=== PATIENT | male | born 1950 | race Two or more races ===

== ENCOUNTER 2018-07-27 09:51 | Inpatient (IN) | payer MEDICAID ==
[~2018-07-27] VITALS: Ht 167.6 cm; Wt 79.8 kg
[2018-07-27] MEDS ORDERED: LISINOPRIL20 MG ORAL (09:54)
[2018-07-27] MEDS ORDERED: FUROSEMIDE40 MG ORAL (09:54)
[2018-07-27] MEDS ORDERED: SPIRONOLACTONE25 MG ORAL (09:54)
[2018-07-27 10:00] VITALS: BP 126/72
[2018-07-27] MEDS ORDERED: Sodium Chloride 500ML 500 ML IV ONE (10:08)
[2018-07-27 10:28] LABS: BASOPHILS % (AUTO) 1.1 % (0.0-2.0); EOSINOPHILS % (AUTO) 0.8 % (0.0-3.0); HEMATOCRIT 52.6 % (42.0-52.0); HEMOGLOBIN 17.8 G/DL (14.2-18.0); LYMPHOCYTES % (AUTO) 17.9 % (20.0-45.0); MEAN CORPUSCULAR VOLUME 94 FL (80-99); MONOCYTES % (AUTO) 7.6 % (1.0-10.0); NEUTROPHILS % (AUTO) 72.5 % (45.0-75.0); PLATELET COUNT 223 K/UL (150-450); RED BLOOD COUNT 5.62 M/UL (4.70-6.10); RED CELL DISTRIBUTION WIDTH 12.1 % (11.6-14.8); WHITE BLOOD COUNT 10.5 K/UL (4.8-10.8)
[2018-07-27 10:36] LABS: ANION GAP 12 mmol/L (5-15); BLOOD UREA NITROGEN 68 mg/dL (7-18); CALCIUM 9.2 MG/DL (8.5-10.1); CARBON DIOXIDE 23 MMOL/L (21-32); CHLORIDE 99 MMOL/L (98-107); CREATININE 2.1 MG/DL (0.55-1.30); POTASSIUM 4.3 MMOL/L (3.5-5.1); SODIUM 134 MMOL/L (136-145)
[2018-07-27 10:50] LABS: ALANINE AMINOTRANSFERASE 29 U/L (12-78); ALBUMIN 3.4 G/DL (3.4-5.0); ALBUMIN/GLOBULIN RATIO 0.7 (1.0-2.7); ALKALINE PHOSPHATASE 124 U/L (46-116); ASPARTATE AMINO TRANSFERASE 26 U/L (15-37); BILIRUBIN,TOTAL 0.6 MG/DL (0.2-1.0); CKMB 3.1 NG/ML (0.0-3.6); CREATINE KINASE 126 U/L (26-308)
[2018-07-27 11:43] VITALS: BP 114/79
--- NOTE | 2018-07-27 11:43 | Emergency Room Report ---
History of Present Illness General Chief Complaint: Nausea Source: Patient, EMS Present Illness HPI 67-year-old male presents ED for evaluation. Brought in by EMS. Called 911 stating he felt nauseous and dizzy 1 day. Per EMS O2 sats low. Started on oxygen. History of CHF. States he is compliant with his medications. Denies chest pain. Denies fevers or chills or cough. No other aggravating relieving factors. Denies any other associated symptoms Allergies: Coded Allergies: No Known Allergies (Unverified , 07/27/18) Patient History Past Medical History: HTN, [place], CAD, asthma Past Surgical History: none Pertinent Family History: none Social History: Denies: smoking, alcohol use, drug use Immunizations: UTD Reviewed Nursing Documentation: PMH: Agreed; PSxH: Agreed Nursing Documentation-PMH Past Medical History: No History, Except For Hx Cardiac Problems: Yes - heart attack 2017, heart surgery Hx Hypertension: Yes Hx Asthma: Yes Review of Systems All Other Systems: negative except mentioned in HPI Physical Exam Vital Signs Date Time Temp Pulse Resp B/P (MAP) Pulse Ox O2 Delivery O2 Flow Rate FiO2 07/27/18 09:46 98.3 91 20 130/69 98 Nasal Cannula 4.0 98.2 Sp02 EP Interpretation: reviewed, normal General Appearance: no apparent distress, alert, GCS 15, non-toxic Head: normocephalic, atraumatic Eyes: bilateral eye normal inspection, bilateral eye PERRL ENT: hearing grossly normal, normal pharynx, no angioedema, normal voice Neck: full range of motion, supple/symm/no masses Respiratory: chest non-tender, lungs clear, normal breath sounds, speaking full sentences Cardiovascular #1: regular rate, rhythm, no edema Cardiovascular #2: 2+ carotid (R), 2+ carotid (L), 2+ radial (R), 2+ radial (L) , 2+ dorsalis pedis (R), 2+ dorsalis pedis (L) Gastrointestinal: normal bowel sounds, non tender, soft, non-distended, no guarding, no rebound Rectal: deferred Genitourinary: normal inspection, no CVA tenderness Musculoskeletal: back normal, gait/station normal, normal range of motion, non- tender Neurologic: alert, oriented x3, responsive, motor strength/tone normal, sensory intact, speech normal Psychiatric: judgement/insight normal, memory normal, mood/affect normal, no suicidal/homicidal ideation Reflexes: 3+ bicep (R), 3+ bicep (L), 3+ tricep (R), 3+ tricep (L), 3+ knee (R) , 3+ knee (L) Skin: normal color, no rash, warm/dry, well hydrated Lymphatic: no adenopathy Medical Decision Making Diagnostic Impression: Primary Impression: CHF exacerbation Qualified Codes: I50.9 - Heart failure, unspecified Additional Impression: Renal insufficiency ER Course Hospital Course 67-year-old male presents ED complaining of shortness of breath, dizziness Differential diagnoses include: AZ/unstable angina, contusion, muscle strain, PTX, rib fracture Clinical course Patient placed on stretcher. on cardiac nurse. After initial history and physical I ordered labs, EKG, chest x-ray, IVFs labs reviewed- no leukocytosis, hemoglobin/hematocrit stable, BUN/Cr elevated, troponins 0.030, BNP greater than 1927 EKG - RBBB, LA deviation, no acute ishemic changes interpreted by me Chest x-ray- pulmonary congestion, sternotomy wires Lasix given. Case discussed with Dr. Orosco and he agreed to accept the patient to his service for further care and support I. I feel this is a highly complex case requiring extensive working including EKG/Rhythm strip, Xray/CT/US, Blood/urine lab work, repeat exams while in ED, and administration of strong opiates/narcotics for pain control, admission to hospital or close patient follow up. Diagnosis - CHF exacerbation, renal insufficiency admitted to telemetry in serious condition Labs Test 07/27/18 10:10 White Blood Count 10.5 K/UL (4.8-10.8) Red Blood Count 5.62 M/UL (4.70-6.10) Hemoglobin 17.8 G/DL (14.2-18.0) Hematocrit 52.6 % (42.0-52.0) Mean Corpuscular Volume 94 FL (80-99) Mean Corpuscular Hemoglobin 31.7 PG (27.0-31.0) Mean Corpuscular Hemoglobin Concent 33.9 G/DL (32.0-36.0) Red Cell Distribution Width 12.1 % (11.6-14.8) Platelet Count 223 K/UL (150-450) Mean Platelet Volume 8.4 FL (6.5-10.1) Neutrophils (%) (Auto) 72.5 % (45.0-75.0) Lymphocytes (%) (Auto) 17.9 % (20.0-45.0) Monocytes (%) (Auto) 7.6 % (1.0-10.0) Eosinophils (%) (Auto) 0.8 % (0.0-3.0) Basophils (%) (Auto) 1.1 % (0.0-2.0) Sodium Level 134 MMOL/L (136-145) Potassium Level 4.3 MMOL/L (3.5-5.1) Chloride Level 99 MMOL/L (98-107) Carbon Dioxide Level 23 MMOL/L (21-32) Anion Gap 12 mmol/L (5-15) Blood Urea Nitrogen 68 mg/dL (7-18) Creatinine 2.1 MG/DL (0.55-1.30) Estimat Glomerular Filtration Rate 31.6 mL/min (>60) Glucose Level 128 MG/DL (74-106) Calcium Level 9.2 MG/DL (8.5-10.1) Total Bilirubin 0.6 MG/DL (0.2-1.0) Aspartate Amino Transf (AST/SGOT) 26 U/L (15-37) Alanine Aminotransferase (ALT/SGPT) 29 U/L (12-78) Alkaline Phosphatase 124 U/L (46-116) Total Creatine Kinase 126 U/L (26-308) Creatine Kinase MB 3.1 NG/ML (0.0-3.6) Creatine Kinase MB Relative Index 2.4 Troponin I 0.030 ng/mL (0.000-0.056) Pro-B-Type Natriuretic Peptide 1927 pg/mL (0-125) Total Protein 8.1 G/DL (6.4-8.2) Albumin 3.4 G/DL (3.4-5.0) Globulin 4.7 g/dL Albumin/Globulin Ratio 0.7 (1.0-2.7) EKG Diagnostic Results Rate: normal Rhythm: NSR ST Segments: other - RBBB ASA given to the pt in ED: No Rhythm Strip Diag. Results EP Interpretation: yes Rhythm: NSR, no PVC's, no ectopy Chest X-Ray Diagnostic Results Chest X-Ray Diagnostic Results : Chest X-Ray Ordered: Yes # of Views/Limited/Complete: 1 View Indication: Shortness of Breath EP Interpretation: Yes Interpretation: no consolidation, no pneumothorax, other - cardiomegaly. sternotomy wires Impression: Other - cardiomegaly Electronically Signed by: Electronically signed by Kota Mitchell MD Last Vital Signs Date Time Temp Pulse Resp B/P (MAP) Pulse Ox O2 Delivery O2 Flow Rate FiO2 07/27/18 10:00 98.2 88 20 126/72 96 Nasal Cannula 2.0 98.2 Status: improved Disposition: ADMITTED INPATIENT Condition: Serious Referrals: NOT CHOSEN IPA/,REFERRING (PCP) Kota Mitchell MD Jul 27, 2018 11:43
--- NOTE | 2018-07-27 11:49 | Diagnostic Imaging Report ---
Indications: Altered mental status, dizziness, nausea Technique: Spiral acquisitions obtained through the brain. Angled axial and coronal 5 x 5 mm slices were reconstructed. Total dose length product 1407.76 mGycm. CTDI vol(s) 70.38 mGy. Dose reduction achieved using automated exposure control Comparison: None. Findings: There is moderate enlargement of the ventricles and marked enlargement of the extra axial CSF spaces multiple parenchymal calcifications are noted in the bilateral hemispheres. No acute intracranial hemorrhage or edema, mass effect, nor midline shift. Normal elizabeth-white differentiation. Visualized orbits and sinuses are unremarkable. The mastoids are clear. The calvarium is intact. Impression: Age-related volume loss Negative for acute intracranial bleed or mass effect The CT scanner at [facility] is accredited by the [employer] and the scans are performed using protocols designed to limit radiation exposure to as low as reasonably achievable to attain images of sufficient resolution adequate for diagnostic evaluation.
[2018-07-27 11:51] LABS: APPEARANCE,URINE CLEAR; BILIRUBIN, URINE NEGATIVE (NEGATIVE); COLOR,URINE PALE YELLOW; GLUCOSE, URINE (UA) NEGATIVE (NEGATIVE); KETONES,URINE NEGATIVE (NEGATIVE); LEUKOCYTE ESTERASE ,URINE NEGATIVE (NEGATIVE); NITRITE,URINE NEGATIVE (NEGATIVE); PH,URINE 6 (4.5-8.0); PROTEIN,URINE NEGATIVE (NEGATIVE); UROBILINOGEN,URINE NORMAL MG/DL (0.0-1.0)
--- NOTE | 2018-07-27 14:32 | History and Physical ---
History of Present Illness General Date patient seen: Jul 27, 2018 Time patient seen: 14:26 Reason for Hospitalization: Nausea Present Illness HPI Pt is a 67 yo male w/ a PMH of Coronary artery disease, CABG 2009, recent pci at [facility], CHF w/ systolic failure of 10%. He presents for shortness of breath and worsening nausea. He states symptoms started yesterday so he decided to come to the ER. Of note, he used to have a pacemaker/defib device years ago but it was removed due to infection. He apparently was told to have it replaced but he refused. He currently seems acceptable to the idea of having it replaced. Allergies: Coded Allergies: No Known Allergies (Unverified , 07/27/18) Medication History Scheduled Furosemide* (Lasix*), 40 MG ORAL DAILY, (Reported) Lisinopril (Lisinopril*), 10 MG ORAL DAILY, (Reported) Spironolactone* (Aldactone*), 25 MG ORAL DAILY, (Reported) Patient History Healthcare decision maker Resuscitation status Advanced Directive on File Past Medical/Surgical History Past Medical/Surgical History: (1) Hx of CABG (2) Renal insufficiency (3) CHF exacerbation Review of Systems Constitutional: Reports: malaise, weakness; Denies: fever Respiratory: Reports: shortness of breath, [place]; Denies: wheezing, sputum Cardiovascular: Reports: edema; Denies: chest pain, palpitations, syncope Gastrointestinal: Reports: abdominal pain, nausea; Denies: constipation, diarrhea Musculoskeletal: Denies: back pain, gout, joint swelling, muscle pain Skin: Denies: rash, change in color Psychiatric: Denies: depressed feelings, SI Neurological: Denies: numbness, paresthesia, seizure Hematologic/Lymphatic: Denies: anemia, blood clots, easy bleeding Physical Exam General Appearance: no apparent distress, alert, obese Lines, tubes and drains: peripheral HEENT: normocephalic, atraumatic, anicteric, mucous membranes moist Neck: non-tender, normal alignment, supple, normal inspection Respiratory/Chest: chest wall non-tender, lungs clear, normal breath sounds, no respiratory distress Cardiovascular/Chest: normal peripheral pulses, normal rate, regular rhythm Abdomen: normal bowel sounds, non tender, soft, no organomegaly Extremities: normal range of motion, non-tender, normal inspection Skin Exam: normal pigmentation, warm/dry Neurologic: no motor/sensory deficits, alert, oriented x 3, responsive Last 24 Hour Vital Signs Date Time Temp Pulse Resp B/P (MAP) Pulse Ox O2 Delivery O2 Flow Rate FiO2 07/27/18 11:59 98.2 81 19 114/79 96 Nasal Cannula 2.0 98.2 07/27/18 11:43 98.2 81 19 114/79 96 Nasal Cannula 2.0 98.2 07/27/18 10:00 98.2 88 20 126/72 96 Nasal Cannula 2.0 98.2 07/27/18 09:46 98.3 91 20 130/69 98 Nasal Cannula 4.0 98.2 Laboratory Tests Test 07/27/18 10:10 07/27/18 11:40 White Blood Count 10.5 K/UL (4.8-10.8) Red Blood Count 5.62 M/UL (4.70-6.10) Hemoglobin 17.8 G/DL (14.2-18.0) Hematocrit 52.6 % (42.0-52.0) H Mean Corpuscular Volume 94 FL (80-99) Mean Corpuscular Hemoglobin 31.7 PG (27.0-31.0) H Mean Corpuscular Hemoglobin Concent 33.9 G/DL (32.0-36.0) Red Cell Distribution Width 12.1 % (11.6-14.8) Platelet Count 223 K/UL (150-450) Mean Platelet Volume 8.4 FL (6.5-10.1) Neutrophils (%) (Auto) 72.5 % (45.0-75.0) Lymphocytes (%) (Auto) 17.9 % (20.0-45.0) L Monocytes (%) (Auto) 7.6 % (1.0-10.0) Eosinophils (%) (Auto) 0.8 % (0.0-3.0) Basophils (%) (Auto) 1.1 % (0.0-2.0) Sodium Level 134 MMOL/L (136-145) L Potassium Level 4.3 MMOL/L (3.5-5.1) Chloride Level 99 MMOL/L (98-107) Carbon Dioxide Level 23 MMOL/L (21-32) Anion Gap 12 mmol/L (5-15) Blood Urea Nitrogen 68 mg/dL (7-18) H Creatinine 2.1 MG/DL (0.55-1.30) H Estimat Glomerular Filtration Rate 31.6 mL/min (>60) Glucose Level 128 MG/DL (74-106) H Calcium Level 9.2 MG/DL (8.5-10.1) Total Bilirubin 0.6 MG/DL (0.2-1.0) Aspartate Amino Transf (AST/SGOT) 26 U/L (15-37) Alanine Aminotransferase (ALT/SGPT) 29 U/L (12-78) Alkaline Phosphatase 124 U/L (46-116) H Total Creatine Kinase 126 U/L (26-308) Creatine Kinase MB 3.1 NG/ML (0.0-3.6) Creatine Kinase MB Relative Index 2.4 Troponin I 0.030 ng/mL (0.000-0.056) Pro-B-Type Natriuretic Peptide 1927 pg/mL (0-125) H Total Protein 8.1 G/DL (6.4-8.2) Albumin 3.4 G/DL (3.4-5.0) Globulin 4.7 g/dL Albumin/Globulin Ratio 0.7 (1.0-2.7) L Urine Color Pale yellow Urine Appearance Clear Urine pH 6 (4.5-8.0) Urine Specific Dorena 1.015 (1.005-1.035) Urine Protein Negative (NEGATIVE) Urine Glucose (UA) Negative (NEGATIVE) Urine Ketones Negative (NEGATIVE) Urine Blood Negative (NEGATIVE) Urine Nitrite Negative (NEGATIVE) Urine Bilirubin Negative (NEGATIVE) Urine Urobilinogen Normal MG/DL (0.0-1.0) Urine Leukocyte Esterase Negative (NEGATIVE) Height (Feet): 5 Height (Inches): 5.00 Weight (Pounds): 180 Assessment/Plan Problem List: (1) Nausea ICD Codes: R11.0 - Nausea SNOMED: 511850000 (2) CHF exacerbation ICD Codes: I50.9 - Heart failure, unspecified SNOMED: 83990548, 700809255 Qualifiers: Qualified Codes: I50.9 - Heart failure, unspecified (3) Hx of CABG ICD Codes: Z95.1 - Presence of aortocoronary bypass graft SNOMED: 155891056, 968877593 (4) Renal insufficiency ICD Codes: N28.9 - Disorder of kidney and ureter, unspecified SNOMED: 002720690, 320163084 Assessment/Plan 1. CHF exacerbation pt has elevated BNP, per records search he apparently had an EF of 10% pt given lasix currently comfortable, will continue ensure to optimize medical management recommend ICD placement 2. Nausea unclear cause, could be related to cardiac disease will c/w Zofran 3. Acute renal insufficiency, possible w/ superimposed CKD at baseline pt given lasix, will monitor renal function closely 4. Hx of CABG, recent PCI [facility] will c/w medical management recommend ICD Brennen Fallon D.O. Jul 27, 2018 14:31
[2018-07-27] MEDS ORDERED: Heparin 5000 units/ml inj IV ONE (14:45)
[2018-07-27] MEDS ORDERED: Heparin 25,000u/D5W 500ml 500 ML IV SCH (14:45)
--- NOTE | 2018-07-27 15:38 | Cardiac Electrophysiology PN ---
Subjective Subjective [id number] Objective Last 24 Hour Vital Signs Date Time Temp Pulse Resp B/P (MAP) Pulse Ox O2 Delivery O2 Flow Rate FiO2 07/27/18 14:54 Nasal Cannula 2.0 07/27/18 11:59 98.2 81 19 114/79 96 Nasal Cannula 2.0 98.2 07/27/18 11:43 98.2 81 19 114/79 96 Nasal Cannula 2.0 98.2 07/27/18 10:00 98.2 88 20 126/72 96 Nasal Cannula 2.0 98.2 07/27/18 09:46 98.3 91 20 130/69 98 Nasal Cannula 4.0 98.2 Laboratory Tests Test 07/27/18 10:10 07/27/18 11:40 White Blood Count 10.5 K/UL (4.8-10.8) Red Blood Count 5.62 M/UL (4.70-6.10) Hemoglobin 17.8 G/DL (14.2-18.0) Hematocrit 52.6 % (42.0-52.0) H Mean Corpuscular Volume 94 FL (80-99) Mean Corpuscular Hemoglobin 31.7 PG (27.0-31.0) H Mean Corpuscular Hemoglobin Concent 33.9 G/DL (32.0-36.0) Red Cell Distribution Width 12.1 % (11.6-14.8) Platelet Count 223 K/UL (150-450) Mean Platelet Volume 8.4 FL (6.5-10.1) Neutrophils (%) (Auto) 72.5 % (45.0-75.0) Lymphocytes (%) (Auto) 17.9 % (20.0-45.0) L Monocytes (%) (Auto) 7.6 % (1.0-10.0) Eosinophils (%) (Auto) 0.8 % (0.0-3.0) Basophils (%) (Auto) 1.1 % (0.0-2.0) Sodium Level 134 MMOL/L (136-145) L Potassium Level 4.3 MMOL/L (3.5-5.1) Chloride Level 99 MMOL/L (98-107) Carbon Dioxide Level 23 MMOL/L (21-32) Anion Gap 12 mmol/L (5-15) Blood Urea Nitrogen 68 mg/dL (7-18) H Creatinine 2.1 MG/DL (0.55-1.30) H Estimat Glomerular Filtration Rate 31.6 mL/min (>60) Glucose Level 128 MG/DL (74-106) H Calcium Level 9.2 MG/DL (8.5-10.1) Total Bilirubin 0.6 MG/DL (0.2-1.0) Aspartate Amino Transf (AST/SGOT) 26 U/L (15-37) Alanine Aminotransferase (ALT/SGPT) 29 U/L (12-78) Alkaline Phosphatase 124 U/L (46-116) H Total Creatine Kinase 126 U/L (26-308) Creatine Kinase MB 3.1 NG/ML (0.0-3.6) Creatine Kinase MB Relative Index 2.4 Troponin I 0.030 ng/mL (0.000-0.056) Pro-B-Type Natriuretic Peptide 1927 pg/mL (0-125) H Total Protein 8.1 G/DL (6.4-8.2) Albumin 3.4 G/DL (3.4-5.0) Globulin 4.7 g/dL Albumin/Globulin Ratio 0.7 (1.0-2.7) L Urine Color Pale yellow Urine Appearance Clear Urine pH 6 (4.5-8.0) Urine Specific Seth 1.015 (1.005-1.035) Urine Protein Negative (NEGATIVE) Urine Glucose (UA) Negative (NEGATIVE) Urine Ketones Negative (NEGATIVE) Urine Blood Negative (NEGATIVE) Urine Nitrite Negative (NEGATIVE) Urine Bilirubin Negative (NEGATIVE) Urine Urobilinogen Normal MG/DL (0.0-1.0) Urine Leukocyte Esterase Negative (NEGATIVE) Kenan Fam MD Jul 27, 2018 15:38
[2018-07-27] MEDS ORDERED: HydrALAZINE 10mg Tab ORAL SCH (18:00)
[2018-07-27 18:21] VITALS: BP 103/64
[2018-07-27 20:00] VITALS: BP 114/78
[2018-07-27] MEDS: Heparin 5000 units/ml inj SUBQ SCH (21:30)
--- NOTE | 2018-07-27 23:30 | Consultation ---
DATE OF CONSULTATION: 07/27/2018 CARDIOLOGY CONSULTATION CONSULTING PHYSICIAN: Kenan Fam M.D. REFERRING PHYSICIAN: Asia Weber M.D. REASON FOR CONSULTATION: Severe cardiomyopathy in a patient, who has also history of defibrillator implantation. HISTORY OF PRESENT ILLNESS: The patient is a 67-year-old gentleman with history of hypertension, coronary artery disease, history of coronary bypass in 2009 as well as history of and seizures. The patient also has history of defibrillator implantation seven years ago, was removed due to infection. The patient was told , but he has refused. At the time of my evaluation, the patient denies any chest pain, but she is agreeable to the defibrillator implantation. REVIEW OF SYSTEMS: Review of systems was negative other than what was mentioned in the history of present illness. PAST MEDICAL HISTORY: As mentioned above. MEDICATIONS: Lisinopril, Aldactone, Lasix. FAMILY HISTORY: Noncontributory. PHYSICAL EXAMINATION: VITAL SIGNS: pressure is 114/79, pulse 81, respirations 19, and she is afebrile. HEAD AND NECK: Shows positive JVD. LUNGS: Coarse rhonchi. CARDIOVASCULAR: Shows regular S1 and S2 with no gallop or murmur. Sternotomy scar is intact. The site of defibrillator explantation on the left side is present. ABDOMEN: Soft. EXTREMITIES: No pitting edema. LABORATORY AND DIAGNOSTIC DATA: EKG shows sinus rhythm with right bundle-branch block and left anterior fascicular block. LABORATORY DATA: White count 10.5, hemoglobin 17.8, hematocrit 52.7, platelet count 223. Sodium 134, potassium 4.3, BUN of 68, creatinine 2.1, and glucose of 128. BNP is 1927. ASSESSMENT AND PLAN: 1. Exacerbation of congestive heart failure. Her echocardiogram showed ejection fraction of around 15% to 20%. Continue current heart failure therapy including Lasix 40 mg IV daily, lisinopril 10 mg daily, and Aldactone 25 mg daily. I will add Coreg to her medical regimen. 2. Status post removal of the defibrillator. The patient presents criteria for ICD implantation, is agreeable, however, patient has restricted medical. We will try to get authorization if possible, otherwise the patient [place] need to have [place] the [place]. 3. Bifascicular block, right bundle-branch block, and left anterior fascicular block. No syncope. 4. Renal failure with creatinine 2.4. Thank you very much for allowing me to participate in the care of this patient. Please do not hesitate to contact me for any questions regarding my evaluation. Kenan Fam M.D. DR: ZE JOB#: [id number] CC:
[2018-07-28] VITALS: BP 112/72
[2018-07-28 04:00] VITALS: BP 115/74
[2018-07-28 07:11] LABS: INR 1.2 (0.9-1.1)
[2018-07-28 07:22] LABS: BASOPHILS % (AUTO) 0.9 % (0.0-2.0); EOSINOPHILS % (AUTO) 1.3 % (0.0-3.0); HEMATOCRIT 53.1 % (42.0-52.0); LYMPHOCYTES % (AUTO) 21.4 % (20.0-45.0); MEAN CORPUSCULAR VOLUME 93 FL (80-99); MONOCYTES % (AUTO) 9.9 % (1.0-10.0); NEUTROPHILS % (AUTO) 66.4 % (45.0-75.0); PLATELET COUNT 221 K/UL (150-450); RED BLOOD COUNT 5.69 M/UL (4.70-6.10); RED CELL DISTRIBUTION WIDTH 11.7 % (11.6-14.8); WHITE BLOOD COUNT 9.1 K/UL (4.8-10.8)
[2018-07-28 07:26] LABS: HEMOGLOBIN 18.6 G/DL (14.2-18.0)
[2018-07-28 07:35] LABS: ANION GAP 13 mmol/L (5-15); BLOOD UREA NITROGEN 57 mg/dL (7-18); CALCIUM 9.3 MG/DL (8.5-10.1); CARBON DIOXIDE 24 MMOL/L (21-32); CHLORIDE 97 MMOL/L (98-107); CREATININE 1.7 MG/DL (0.55-1.30); POTASSIUM 4.1 MMOL/L (3.5-5.1); SODIUM 134 MMOL/L (136-145)
[2018-07-28 08:00] VITALS: BP 101/69
[2018-07-28] MEDS: Heparin 5000 units/ml inj SUBQ SCH ×2 (08:51→20:35)
[2018-07-28] MEDS: Spironolactone 25mg tab ORAL SCH (09:00)
[2018-07-28] MEDS ORDERED: Furosemide 40mg tab ORAL SCH (09:00)
[2018-07-28] MEDS ORDERED: Lisinopril 10mg tab ORAL SCH (09:00)
[2018-07-28] MEDS: HydrALAZINE 10mg Tab ORAL SCH ×2 (09:00→21:00)
--- NOTE | 2018-07-28 09:57 | General Progress Note ---
Assessment/Plan Problem List: (1) Nausea ICD Codes: R11.0 - Nausea SNOMED: 183619972 (2) CHF exacerbation ICD Codes: I50.9 - Heart failure, unspecified SNOMED: 99330837, 131649224 Qualifiers: Qualified Codes: I50.9 - Heart failure, unspecified (3) Hx of CABG ICD Codes: Z95.1 - Presence of aortocoronary bypass graft SNOMED: 157750845, 812379209 (4) Renal insufficiency ICD Codes: N28.9 - Disorder of kidney and ureter, unspecified SNOMED: 891005483, 137575692 Assessment/Plan 1. CHF exacerbation pt has elevated BNP, per records search he apparently had an EF of 10% pt given lasix, somewhat improved ensure to optimize medical management recommend ICD placement 2. Nausea, improving unclear cause, could be related to cardiac disease will c/w Zofran 3. Acute renal insufficiency, possible w/ superimposed CKD at baseline pt given lasix, will monitor renal function closely slightly improved as well 4. Hx of CABG, recent PCI [facility] will c/w medical management recommend ICD Subjective Date patient seen: Jul 28, 2018 Time patient seen: 09:55 Allergies: Coded Allergies: No Known Allergies (Unverified , 07/27/18) Subjective Pt seen and examined. No complaints today, states his nausea is significantly improved. He is feeling okay overall. Other ROS as per HPI Objective Last 24 Hour Vital Signs Date Time Temp Pulse Resp B/P (MAP) Pulse Ox O2 Delivery O2 Flow Rate FiO2 07/28/18 08:00 97.2 87 17 101/69 (80) 96 97.2 07/28/18 08:00 92 07/28/18 04:00 76 07/28/18 04:00 97.0 82 20 115/74 (88) 99 97.0 07/28/18 00:00 97.3 75 20 112/72 (85) 100 97.3 07/28/18 00:00 75 07/27/18 21:00 Nasal Cannula 2.0 07/27/18 20:00 97.3 82 20 114/78 (90) 97 97.3 07/27/18 20:00 82 07/27/18 18:21 103/64 (77) 07/27/18 18:00 103/64 07/27/18 18:00 103/64 10/17/18 16:00 81 07/27/18 14:54 Nasal Cannula 2.0 07/27/18 11:59 98.2 81 19 114/79 96 Nasal Cannula 2.0 98.2 07/27/18 11:43 98.2 81 19 114/79 96 Nasal Cannula 2.0 98.2 07/27/18 10:00 98.2 88 20 126/72 96 Nasal Cannula 2.0 98.2 Intake and Output 07/27/18 07/28/18 19:00 07:00 Intake Total 800 ml 500 ml Output Total 1400 ml 1000 ml Balance -600 ml -500 ml Intake Oral 800 ml 500 ml Output Urine Total 1400 ml 1000 ml # Voids 3 Laboratory Tests 07/27/18 10:10: White Blood Count 10.5, Red Blood Count 5.62, Hemoglobin 17.8, Hematocrit 52.6H , Mean Corpuscular Volume 94, Mean Corpuscular Hemoglobin 31.7H, Mean Corpuscular Hemoglobin Concent 33.9, Red Cell Distribution Width 12.1, Platelet Count 223, Mean Platelet Volume 8.4, Neutrophils (%) (Auto) 72.5, Lymphocytes (% ) (Auto) 17.9L, Monocytes (%) (Auto) 7.6, Eosinophils (%) (Auto) 0.8, Basophils (%) (Auto) 1.1, Sodium Level 134L, Potassium Level 4.3, Chloride Level 99, Carbon Dioxide Level 23, Anion Gap 12, Blood Urea Nitrogen 68H, Creatinine 2.1H , Estimat Glomerular Filtration Rate 31.6, Glucose Level 128H, Calcium Level 9.2 , Total Bilirubin 0.6, Aspartate Amino Transf (AST/SGOT) 26, Alanine Aminotransferase (ALT/SGPT) 29, Alkaline Phosphatase 124H, Total Creatine Kinase 126, Creatine Kinase MB 3.1, Creatine Kinase MB Relative Index 2.4, Troponin I 0.030, Pro-B-Type Natriuretic Peptide 1927H, Total Protein 8.1, Albumin 3.4, Globulin 4.7, Albumin/Globulin Ratio 0.7L 07/27/18 11:40: Urine Color Pale yellow, Urine Appearance Clear, Urine pH 6, Urine Specific Nye 1.015, Urine Protein Negative, Urine Glucose (UA) Negative, Urine Ketones Negative, Urine Blood Negative, Urine Nitrite Negative, Urine Bilirubin Negative, Urine Urobilinogen Normal, Urine Leukocyte Esterase Negative 07/28/18 05:20: White Blood Count 9.1, Red Blood Count 5.69, Hemoglobin 18.6*H, Hematocrit 53.1H , Mean Corpuscular Volume 93, Mean Corpuscular Hemoglobin 32.6H, Mean Corpuscular Hemoglobin Concent 34.9, Red Cell Distribution Width 11.7, Platelet Count 221, Mean Platelet Volume 8.7, Neutrophils (%) (Auto) 66.4, Lymphocytes (% ) (Auto) 21.4, Monocytes (%) (Auto) 9.9, Eosinophils (%) (Auto) 1.3, Basophils ( %) (Auto) 0.9, Sodium Level 134L, Potassium Level 4.1, Chloride Level 97L, Carbon Dioxide Level 24, Anion Gap 13, Blood Urea Nitrogen 57H, Creatinine 1.7H , Estimat Glomerular Filtration Rate 40.3, Glucose Level 102, Calcium Level 9.3 , Pro-B-Type Natriuretic Peptide 1435H, Prothrombin Time 12.5H, Prothromb Time International Ratio 1.2H Height (Feet): 5 Height (Inches): 5.00 Weight (Pounds): 180 General Appearance: no apparent distress, alert EENT: PERRL/EOMI, normal ENT inspection, TMs normal Neck: non-tender, normal alignment, supple Cardiovascular: normal peripheral pulses, normal rate, regular rhythm Respiratory/Chest: chest wall non-tender, lungs clear, normal breath sounds Abdomen: normal bowel sounds, non tender, soft Extremities: normal range of motion, non-tender, normal inspection Skin: normal pigmentation, warm/dry Brennen Fallon D.O. Jul 28, 2018 09:57
--- NOTE | 2018-07-28 10:32 | Cardiac Electrophysiology PN ---
Assessment/Plan Assessment/Plan 1. Exacerbation of congestive heart failure. Her echocardiogram showed ejection fraction of around 15% to 20%. Continue current heart failure therapy including Lasix 40 mg IV daily, lisinopril 10 mg daily, and Aldactone 25 mg daily and Coreg 2. Status post removal of the defibrillator. The patient meets criteria for ICD implantation and is agreeable, however, patient has restricted medical. We will try to get authorization if possible, otherwise the patient may need to have it done in the [facility] facility. 3. Bifascicular block, right bundle-branch block, and left anterior fascicular block. No syncope. 4. Renal failure with creatinine 2.4. Subjective Subjective Comfortable in NAD. Occasional PVCs. Objective Last 24 Hour Vital Signs Date Time Temp Pulse Resp B/P (MAP) Pulse Ox O2 Delivery O2 Flow Rate FiO2 07/28/18 09:00 Nasal Cannula 2.0 07/28/18 08:00 97.2 87 17 101/69 (80) 96 97.2 07/28/18 08:00 92 07/28/18 04:00 76 07/28/18 04:00 97.0 82 20 115/74 (88) 99 97.0 07/28/18 00:00 97.3 75 20 112/72 (85) 100 97.3 07/28/18 00:00 75 07/27/18 21:00 Nasal Cannula 2.0 07/27/18 20:00 97.3 82 20 114/78 (90) 97 97.3 07/27/18 20:00 82 07/27/18 18:21 103/64 (77) 07/27/18 18:00 103/64 07/27/18 18:00 103/64 07/27/18 16:00 81 07/27/18 14:54 Nasal Cannula 2.0 07/27/18 11:59 98.2 81 19 114/79 96 Nasal Cannula 2.0 98.2 07/27/18 11:43 98.2 81 19 114/79 96 Nasal Cannula 2.0 98.2 Intake and Output 07/27/18 07/28/18 19:00 07:00 Intake Total 800 ml 500 ml Output Total 1400 ml 1000 ml Balance -600 ml -500 ml Intake Oral 800 ml 500 ml Output Urine Total 1400 ml 1000 ml # Voids 3 Laboratory Tests Test 07/27/18 11:40 07/28/18 05:20 Urine Color Pale yellow Urine Appearance Clear Urine pH 6 (4.5-8.0) Urine Specific Circle 1.015 (1.005-1.035) Urine Protein Negative (NEGATIVE) Urine Glucose (UA) Negative (NEGATIVE) Urine Ketones Negative (NEGATIVE) Urine Blood Negative (NEGATIVE) Urine Nitrite Negative (NEGATIVE) Urine Bilirubin Negative (NEGATIVE) Urine Urobilinogen Normal MG/DL (0.0-1.0) Urine Leukocyte Esterase Negative (NEGATIVE) White Blood Count 9.1 K/UL (4.8-10.8) Red Blood Count 5.69 M/UL (4.70-6.10) Hemoglobin 18.6 G/DL (14.2-18.0) *H Hematocrit 53.1 % (42.0-52.0) H Mean Corpuscular Volume 93 FL (80-99) Mean Corpuscular Hemoglobin 32.6 PG (27.0-31.0) H Mean Corpuscular Hemoglobin Concent 34.9 G/DL (32.0-36.0) Red Cell Distribution Width 11.7 % (11.6-14.8) Platelet Count 221 K/UL (150-450) Mean Platelet Volume 8.7 FL (6.5-10.1) Neutrophils (%) (Auto) 66.4 % (45.0-75.0) Lymphocytes (%) (Auto) 21.4 % (20.0-45.0) Monocytes (%) (Auto) 9.9 % (1.0-10.0) Eosinophils (%) (Auto) 1.3 % (0.0-3.0) Basophils (%) (Auto) 0.9 % (0.0-2.0) Prothrombin Time 12.5 SEC (9.30-11.50) H Prothromb Time International Ratio 1.2 (0.9-1.1) H Sodium Level 134 MMOL/L (136-145) L Potassium Level 4.1 MMOL/L (3.5-5.1) Chloride Level 97 MMOL/L (98-107) L Carbon Dioxide Level 24 MMOL/L (21-32) Anion Gap 13 mmol/L (5-15) Blood Urea Nitrogen 57 mg/dL (7-18) H Creatinine 1.7 MG/DL (0.55-1.30) H Estimat Glomerular Filtration Rate 40.3 mL/min (>60) Glucose Level 102 MG/DL (74-106) Calcium Level 9.3 MG/DL (8.5-10.1) Pro-B-Type Natriuretic Peptide 1435 pg/mL (0-125) H Objective HEAD AND NECK: Shows positive JVD. LUNGS: Coarse rhonchi. CARDIOVASCULAR: Shows regular S1 and S2 with no gallop or murmur. Sternotomy scar is intact. The site of defibrillator explantation on the left side is present. ABDOMEN: Soft. EXTREMITIES: No pitting edema. Kenan Fam MD Jul 28, 2018 10:32
[2018-07-28 12:00] VITALS: BP 106/55
[2018-07-28] MEDS ORDERED: Flu Vaccine (Alfuria) for Pts Less than 65 Years old IM ONE (12:00)
--- NOTE | 2018-07-28 13:10 | Cardiology Report ---
APPROVED REPORT EXAM: Two-dimensional and M-mode echocardiogram with Doppler and color Doppler. INDICATION Congestive Heart Failure M-Mode DIMENSIONS IVSd2.2 (0.7-1.1cm)Left Atrium (MM)3.7 (1.6-4.0cm) LVDd5.5 (3.5-5.6cm)Aortic Root4.3 (2.0-3.7cm) PWd1.5 (0.7-1.1cm)Aortic Cusp Exc.1.8 (1.5-2.0cm) IVSs1.8 cm LVDs5.1 (2.5-4.0cm) PWs2.1 cm Global left ventricular hypokinesis, except septal wall which is dyskinetic. Mild left ventricular enlargement with thinned out anteroseptal wall and presence of sclerotic changes may represent prior myocardial infarction, ischemic cardiomyopathy cannot be excluded. Left ventricular ejection fraction estimated to be 15-20 %. No evidence of left ventricular hypertrophy . Trivial pericardial effusion. Left atrial chamber sizes is within normal limits . Right cardiac chamber sizes are within normal limits . Focal aortic valve sclerosis with adequate cusp excursion. Moderately Thickened mitral valve leaflets with normal excursion. Moderately Mitral annulus and aortic root calcification. Pulmonic valve not well visualized. Normal tricuspid valve structure. . IVC at size 2.2 cm without physiologic collapse , suggestive to increase RA pressure . A color flow and spectral Doppler study was performed and revealed: Mild aortic regurgitation. Mild mitral regurgitation. Left ventricular diastolic function can not determined due to arrhythmia . Trace tricuspid regurgitation. Tricuspid systolic velocities suggests peak right ventricular systolic pressure of 20mmHg.
--- NOTE | 2018-07-28 13:25 | Cardiology Report ---
APPROVED REPORT EKG Measurement Heart [id number] Normal sinus rhythm Possible Left atrial enlargement Left axis deviation Right bundle branch block and left anterior hemiblock (Bifascicular block) Septal infarct, age undetermined Abnormal ECG
--- NOTE | 2018-07-28 13:54 | Diagnostic Imaging Report ---
Indication: Dyspnea Comparison: None A single view chest radiograph was obtained. Findings: No definite infiltrate or pulmonary vascular congestion identified. Sternotomy is noted. The heart is enlarged. The aorta is mildly enlarged consistent with atherosclerotic vascular disease. The bones are osteopenic. Impression: No acute disease
[2018-07-28 16:00] VITALS: BP 127/84
[2018-07-28 20:00] VITALS: BP 119/83
[2018-07-29] VITALS: BP 117/77
[2018-07-29 04:00] VITALS: BP 133/94
[2018-07-29 08:00] VITALS: BP 117/76
[2018-07-29] MEDS: Spironolactone 25mg tab ORAL SCH (08:18)
[2018-07-29] MEDS: HydrALAZINE 10mg Tab ORAL SCH ×2 (08:18→20:49)
[2018-07-29] MEDS: Heparin 5000 units/ml inj SUBQ SCH ×2 (08:21→20:52)
--- NOTE | 2018-07-29 09:08 | Consultation ---
Consult Note Consult Note Hematology Consult Date patient seen: Jul 29, 2018 Reason for Hospitalization: Nausea RFC: Erythrocytosis ESTRELLA MD: GusBarrykarsten ID [id number] yo male w/ a PMH of Coronary artery disease, CABG 2009, recent pci at [facility] , CHF w/ systolic failure of 10%. He presents for shortness of breath and worsening nausea. He states symptoms started yesterday so he decided to come to the ER. Of note, he used to have a pacemaker/defib device years ago but it was removed due to infection. He apparently was told to have it replaced but he refused. He currently seems acceptable to the idea of having it replaced. Has been seen by cards and a ICD was recommended and hematology was consulted for erythrocytosis. Allergies: No Known Allergies (Unverified , 07/27/18) Meds: Furosemide* (Lasix*), 40 MG ORAL DAILY, (Reported) Lisinopril (Lisinopril*), 10 MG ORAL DAILY, (Reported) Spironolactone* (Aldactone*), 25 MG ORAL DAILY, (Reported) Past Medical/Surgical History Past Medical/Surgical History: (1) Hx of CABG (2) Renal insufficiency (3) CHF exacerbation Review of Systems Constitutional: Reports: malaise, weakness; Denies: fever Respiratory: Reports: shortness of breath, [place]; Denies: wheezing, sputum Cardiovascular: Reports: edema; Denies: chest pain Gastrointestinal: Reports: abdominal pain, nausea; Denies: constipation Musculoskeletal: Denies: back pain, gout, joint swelling, muscle pain Skin: Denies: rash, change in color Psychiatric: Denies: depressed feelings, SI Neurological: Denies: numbness, paresthesia, seizure Hematologic/Lymphatic: Denies: anemia, blood clots Physical Exam General Appearance: no apparent distress Lines, tubes and drains: peripheral HEENT: normocephalic, atraumatic, anicteric, mucous membranes moist ++ Neck: non-tender, normal alignment, supple, normal inspection Respiratory/Chest: chest wall non-tender, lungs clear Cardiovascular/Chest: normal peripheral pulses, rrr Abdomen: normal bowel sounds, non tender, soft Extremities: normal range of motion, non-tender, normal inspection Skin Exam: normal pigmentation, warm/dry Neurologic: no motor/sensory deficits, alert, oriented x 3 labs reviewed Assessment and Recs: # Erythrocytosis potentially due to perfusion deficit and compensatory stat --> r/o malignancy, have ordered for epo level --> in addition, iron levels/saturation ordered as well --> otherwise, can consider sleep study if insomnia, any e/o rosario # Coagulopathy - mild, consider liver dysfunction --> ultrasound of the abd has been ordered # CHF exacerbation -- prn diuresis --> seen by cardiology service # Hx of CABG with pci recently at [facility] --> ICD as needed # ALMAS on ckd --> lasix given, monitor closely # Nausea - will c/w Aditi Appreciate consultation greatly! Marcin Henry MD Jul 29, 2018 09:08
[2018-07-29 10:57] LABS: FERRITIN 87 NG/ML (8-388)
[2018-07-29 11:01] LABS: % IRON SATURATION 58 % (15-50); IRON 145 ug/dL (50-175); TOTAL IRON BINDING CAPACITY 248 ug/dL (250-450)
--- NOTE | 2018-07-29 11:02 | General Progress Note ---
Assessment/Plan Problem List: (1) Nausea ICD Codes: R11.0 - Nausea SNOMED: 655792648 (2) CHF exacerbation ICD Codes: I50.9 - Heart failure, unspecified SNOMED: 56012936, 401561703 Qualifiers: Qualified Codes: I50.9 - Heart failure, unspecified (3) Hx of CABG ICD Codes: Z95.1 - Presence of aortocoronary bypass graft SNOMED: 357301840, 281550799 (4) Renal insufficiency ICD Codes: N28.9 - Disorder of kidney and ureter, unspecified SNOMED: 803596086, 306791550 Assessment/Plan 1. CHF exacerbation pt has elevated BNP, per records search he apparently had an EF of 10% pt given lasix, somewhat improved ensure to optimize medical management recommend ICD placement however medical restricted, awaiting approval 2. Nausea, improving unclear cause, could be related to cardiac disease will c/w Zofran 3. Acute renal insufficiency, possible w/ superimposed CKD at baseline pt given lasix, will monitor renal function closely slightly improved as well 4. Hx of CABG, recent PCI at [facility] will c/w medical management recommend ICD Subjective Date patient seen: Jul 29, 2018 Time patient seen: 10:50 Allergies: Coded Allergies: No Known Allergies (Unverified , 07/27/18) Subjective Pt seen and examined. Feeling okay, pt is NPO. Other ROS as per HPI Objective Last 24 Hour Vital Signs Date Time Temp Pulse Resp B/P (MAP) Pulse Ox O2 Delivery O2 Flow Rate FiO2 07/29/18 08:18 117/76 07/29/18 08:18 117/76 07/29/18 08:00 98.1 84 20 117/76 (90) 99 98.1 07/29/18 08:00 102 07/29/18 04:16 73 07/29/18 04:00 96.5 80 20 133/94 (107) 94 96.5 07/29/18 00:01 72 07/29/18 00:00 97.9 79 22 117/77 (90) 94 97.9 07/28/18 21:00 100/83 07/28/18 21:00 100/83 07/28/18 21:00 Nasal Cannula 2.0 07/28/18 20:00 97.7 75 20 119/83 (95) 93 97.7 07/28/18 19:52 81 07/28/18 16:00 76 07/28/18 16:00 96.8 77 20 127/84 (98) 95 96.8 07/28/18 12:00 83 07/28/18 12:00 97.3 75 20 106/55 (72) 93 97.3 Intake and Output 07/28/18 07/29/18 18:59 06:59 Intake Total 450 ml Balance 450 ml Intake Oral 450 ml # Voids 1 Laboratory Tests 07/29/18 09:40: Iron Level [Pending], Unsaturated Iron Binding [Pending], Erythropoietin [ Pending], Ferritin [Pending] Height (Feet): 5 Height (Inches): 5.00 Weight (Pounds): 180 Brennen Fallon D.O. Jul 29, 2018 11:02
[2018-07-29 12:00] VITALS: BP 116/69
--- NOTE | 2018-07-29 12:38 | Cardiac Electrophysiology PN ---
Assessment/Plan Assessment/Plan 1. Exacerbation of congestive heart failure. Echocardiogram showed ejection fraction of around 15% to 20%. Continue current heart failure therapy including Lasix 40 mg IV daily, lisinopril 10 mg daily, and Aldactone 25 mg daily and Coreg 2. Status post removal of the defibrillator. The patient meets criteria for ICD implantation and is agreeable, however, patient has restricted medical. We will try to get authorization if possible, otherwise the patient may need to have it done in the [facility] facility. 3. Bifascicular block, right bundle-branch block, and left anterior fascicular block. No syncope. 4. Renal failure with creatinine 2.4. Subjective Subjective Comfortable in NAD. Occasional PVCs.No VT. Objective Last 24 Hour Vital Signs Date Time Temp Pulse Resp B/P (MAP) Pulse Ox O2 Delivery O2 Flow Rate FiO2 07/29/18 12:00 96.6 92 20 116/69 (85) 99 96.6 07/29/18 09:00 Nasal Cannula 2.0 07/29/18 08:18 117/76 07/29/18 08:18 117/76 07/29/18 08:00 98.1 84 20 117/76 (90) 99 98.1 07/29/18 08:00 102 07/29/18 04:16 73 07/29/18 04:00 96.5 80 20 133/94 (107) 94 96.5 07/29/18 00:01 72 07/29/18 00:00 97.9 79 22 117/77 (90) 94 97.9 07/28/18 21:00 100/83 07/28/18 21:00 100/83 07/28/18 21:00 Nasal Cannula 2.0 07/28/18 20:00 97.7 75 20 119/83 (95) 93 97.7 07/28/18 19:52 81 07/28/18 16:00 76 07/28/18 16:00 96.8 77 20 127/84 (98) 95 96.8 Intake and Output 07/28/18 07/29/18 18:59 06:59 Intake Total 450 ml Balance 450 ml Intake Oral 450 ml # Voids 1 Laboratory Tests Test 07/29/18 09:40 Iron Level 145 ug/dL (50-175) Total Iron Binding Capacity 248 ug/dL (250-450) L Percent Iron Saturation 58 % (15-50) H Unsaturated Iron Binding 103 ug/dL (112-346) L Erythropoietin Pending Ferritin 87 NG/ML (8-388) Objective HEAD AND NECK: Shows positive JVD. LUNGS: Coarse rhonchi. CARDIOVASCULAR: Shows regular S1 and S2 with no gallop or murmur. Sternotomy scar is intact. The site of defibrillator explantation on the left side is present. ABDOMEN: Soft. EXTREMITIES: No pitting edema. Kenan Fam MD Jul 29, 2018 12:38
[2018-07-29 16:00] VITALS: BP 99/77
[2018-07-29 20:00] VITALS: BP 103/62
--- NOTE | 2018-07-29 22:43 | Diagnostic Imaging Report ---
EXAM: US Abdomen Complete CLINICAL HISTORY: ABD PAIN TECHNIQUE: Real-time ultrasound of the abdomen (complete) with image documentation. COMPARISON: No relevant prior studies available. FINDINGS: No gallstones. No gallbladder wall thickening. Gallbladder fold incidentally noted. Visualized CBD normal caliber. Sonographic Delatorre sign reported as negative. Possible periportal hyperechogenicity. There is a wide differential for this finding including inflammatory and infectious etiologies as well as pneumobilia. Can also be a normal incidental finding. Minimal nodular surface contour to liver. Correlate for underlying cirrhosis and/or other hepatocellular disease. Pancreas is not well seen. Right renal cyst. Echogenic foci in the kidneys. May represent non-obstructive calcifications. No hydronephrosis is appreciated. Visualized aorta normal caliber. No splenomegaly. No free fluid. IMPRESSION: No evidence for cholecystitis. Possible periportal hyperechogenicity. There is a wide differential for this finding including inflammatory and infectious etiologies as well as pneumobilia. Can also be a normal incidental finding. Minimal nodular surface contour to liver. Correlate for underlying cirrhosis and/or other hepatocellular disease. Echogenic foci in the kidneys. May represent non-obstructive calcifications. No hydronephrosis is appreciated. Other findings, as above.
[2018-07-30] VITALS: BP 99/71
[2018-07-30 04:00] VITALS: BP 104/77
[2018-07-30 07:40] LABS: BASOPHILS % (AUTO) 1.1 % (0.0-2.0); EOSINOPHILS % (AUTO) 2.1 % (0.0-3.0); HEMATOCRIT 49.9 % (42.0-52.0); HEMOGLOBIN 17.3 G/DL (14.2-18.0); LYMPHOCYTES % (AUTO) 23.5 % (20.0-45.0); MEAN CORPUSCULAR VOLUME 93 FL (80-99); MONOCYTES % (AUTO) 10.4 % (1.0-10.0); NEUTROPHILS % (AUTO) 62.9 % (45.0-75.0); PLATELET COUNT 175 K/UL (150-450); RED BLOOD COUNT 5.35 M/UL (4.70-6.10); RED CELL DISTRIBUTION WIDTH 12.3 % (11.6-14.8); WHITE BLOOD COUNT 8.5 K/UL (4.8-10.8)
[2018-07-30 08:00] VITALS: BP 112/74
[2018-07-30 08:05] LABS: ANION GAP 8 mmol/L (5-15); BLOOD UREA NITROGEN 38 mg/dL (7-18); CALCIUM 9.2 MG/DL (8.5-10.1); CARBON DIOXIDE 27 MMOL/L (21-32); CHLORIDE 99 MMOL/L (98-107); CREATININE 1.3 MG/DL (0.55-1.30); POTASSIUM 3.8 MMOL/L (3.5-5.1); SODIUM 134 MMOL/L (136-145)
[2018-07-30] MEDS: Spironolactone 25mg tab ORAL SCH (09:11)
[2018-07-30] MEDS: HydrALAZINE 10mg Tab ORAL SCH ×2 (09:11→20:52)
[2018-07-30] MEDS: Heparin 5000 units/ml inj SUBQ SCH ×2 (09:13→20:56)
--- NOTE | 2018-07-30 10:08 | General Progress Note ---
Assessment/Plan Problem List: (1) CHF exacerbation ICD Codes: I50.9 - Heart failure, unspecified SNOMED: 99827441, 859007629 Qualifiers: Qualified Codes: I50.9 - Heart failure, unspecified (2) Hx of CABG ICD Codes: Z95.1 - Presence of aortocoronary bypass graft SNOMED: 242496833, 108161788 (3) Renal insufficiency ICD Codes: N28.9 - Disorder of kidney and ureter, unspecified SNOMED: 813953811, 609690629 Assessment/Plan 1. CHF exacerbation pt has elevated BNP, per records search he apparently had an EF of 10% pt given lasix, switch from IV to PO ensure to optimize medical management recommend ICD placement however medical restricted, awaiting approval 2. Acute renal insufficiency, possible w/ superimposed CKD at baseline- improved pt given lasix, will monitor renal function closely 3. Hx of CABG, recent PCI at [facility] will c/w medical management recommend ICD Subjective ROS Limited/Unobtainable: No Allergies: Coded Allergies: No Known Allergies (Unverified , 07/27/18) All Systems: reviewed and negative except above Subjective Patient denies SOB, chest pain, heart palpitations and dizziness. Objective Last 24 Hour Vital Signs Date Time Temp Pulse Resp B/P (MAP) Pulse Ox O2 Delivery O2 Flow Rate FiO2 07/30/18 09:12 112/74 07/30/18 09:11 112/74 07/30/18 04:00 97.4 87 18 104/77 (86) 97 97.4 07/30/18 04:00 84 07/30/18 00:00 96.6 89 18 99/71 (80) 95 96.6 07/30/18 00:00 84 07/29/18 21:00 Nasal Cannula 2.0 07/29/18 20:49 103/62 07/29/18 20:49 103/62 07/29/18 20:00 97.5 93 18 103/62 (76) 97 97.5 07/29/18 20:00 95 07/29/18 16:00 97.7 82 20 99/77 (84) 94 97.7 07/29/18 16:00 87 07/29/18 12:00 98 07/29/18 12:00 96.6 92 20 116/69 (85) 99 96.6 Intake and Output 07/29/18 07/30/18 19:00 07:00 Intake Total 250 ml 400 ml Output Total 275 ml Balance 250 ml 125 ml Intake Oral 250 ml 400 ml Output Urine Total 275 ml # Voids 3 Laboratory Tests 07/30/18 06:30: White Blood Count 8.5, Red Blood Count 5.35, Hemoglobin 17.3, Hematocrit 49.9, Mean Corpuscular Volume 93, Mean Corpuscular Hemoglobin 32.3H, Mean Corpuscular Hemoglobin Concent 34.5, Red Cell Distribution Width 12.3, Platelet Count 175, Mean Platelet Volume 8.4, Neutrophils (%) (Auto) 62.9, Lymphocytes (%) (Auto) 23.5, Monocytes (%) (Auto) 10.4H, Eosinophils (%) (Auto) 2.1, Basophils (%) ( Auto) 1.1, Sodium Level 134L, Potassium Level 3.8, Chloride Level 99, Carbon Dioxide Level 27, Anion Gap 8, Blood Urea Nitrogen 38H, Creatinine 1.3, Estimat Glomerular Filtration Rate 54.9, Glucose Level 97, Calcium Level 9.2 Height (Feet): 5 Height (Inches): 5.00 Weight (Pounds): 180 General Appearance: no apparent distress, alert, lethargic EENT: PERRL/EOMI, normal ENT inspection, TMs normal Neck: normal alignment, supple, normal inspection Cardiovascular: normal peripheral pulses, normal rate, regular rhythm, regularly irregular, no gallop/murmur, no JVD Respiratory/Chest: chest wall non-tender, lungs clear, no accessory muscle use Abdomen: normal bowel sounds, non tender, soft, no organomegaly, no mass Extremities: normal range of motion, non-tender Edema: no edema noted Arm (L), no edema noted Arm (R), no edema noted Leg (L), no edema noted Leg (R), no edema noted Pedal (L), no edema noted Pedal (R), no edema noted Generalized Neurologic: cop breaker II-XII grossly normal, no motor/sensory deficits, oriented x 3 Skin: normal pigmentation, warm/dry Tanya Moore DO Jul 30, 2018 10:08
[2018-07-30 12:00] VITALS: BP 92/65
--- NOTE | 2018-07-30 14:54 | Cardiac Electrophysiology PN ---
Assessment/Plan Assessment/Plan 1. Exacerbation of congestive heart failure. Echocardiogram showed ejection fraction of around 15% to 20%. Continue Lasix 40 mg IV daily, lisinopril 10 mg daily, and Aldactone 25 mg daily and Coreg 2. Status post removal of the defibrillator. The patient meets criteria for ICD implantation and is agreeable, however, patient has restricted medical. Needs to have it done at the [facility] facility. 3. Bifascicular block, right bundle-branch block, and left anterior fascicular block. No syncope. 4. Renal failure with creatinine 2.4. 5. SVT nonsustained. Continue Coreg Subjective Subjective Comfortable in NAD. Occasional PVCs.Had non sustained SVT with aberrancy. Objective Last 24 Hour Vital Signs Date Time Temp Pulse Resp B/P (MAP) Pulse Ox O2 Delivery O2 Flow Rate FiO2 07/30/18 09:12 112/74 07/30/18 09:11 112/74 07/30/18 09:00 Nasal Cannula 2.0 07/30/18 08:00 97.3 85 19 112/74 (87) 100 97.3 07/30/18 04:00 97.4 87 18 104/77 (86) 97 97.4 07/30/18 04:00 84 07/30/18 00:00 96.6 89 18 99/71 (80) 95 96.6 07/30/18 00:00 84 07/29/18 21:00 Nasal Cannula 2.0 07/29/18 20:49 103/62 07/29/18 20:49 103/62 07/29/18 20:00 97.5 93 18 103/62 (76) 97 97.5 07/29/18 20:00 95 07/29/18 16:00 97.7 82 20 99/77 (84) 94 97.7 07/29/18 16:00 87 Intake and Output 07/29/18 07/30/18 19:00 07:00 Intake Total 250 ml 400 ml Output Total 275 ml Balance 250 ml 125 ml Intake Oral 250 ml 400 ml Output Urine Total 275 ml # Voids 3 Laboratory Tests Test 07/30/18 06:30 White Blood Count 8.5 K/UL (4.8-10.8) Red Blood Count 5.35 M/UL (4.70-6.10) Hemoglobin 17.3 G/DL (14.2-18.0) Hematocrit 49.9 % (42.0-52.0) Mean Corpuscular Volume 93 FL (80-99) Mean Corpuscular Hemoglobin 32.3 PG (27.0-31.0) H Mean Corpuscular Hemoglobin Concent 34.5 G/DL (32.0-36.0) Red Cell Distribution Width 12.3 % (11.6-14.8) Platelet Count 175 K/UL (150-450) Mean Platelet Volume 8.4 FL (6.5-10.1) Neutrophils (%) (Auto) 62.9 % (45.0-75.0) Lymphocytes (%) (Auto) 23.5 % (20.0-45.0) Monocytes (%) (Auto) 10.4 % (1.0-10.0) H Eosinophils (%) (Auto) 2.1 % (0.0-3.0) Basophils (%) (Auto) 1.1 % (0.0-2.0) Sodium Level 134 MMOL/L (136-145) L Potassium Level 3.8 MMOL/L (3.5-5.1) Chloride Level 99 MMOL/L (98-107) Carbon Dioxide Level 27 MMOL/L (21-32) Anion Gap 8 mmol/L (5-15) Blood Urea Nitrogen 38 mg/dL (7-18) H Creatinine 1.3 MG/DL (0.55-1.30) Estimat Glomerular Filtration Rate 54.9 mL/min (>60) Glucose Level 97 MG/DL (74-106) Calcium Level 9.2 MG/DL (8.5-10.1) Objective HEAD AND NECK: Shows positive JVD. LUNGS: Coarse rhonchi. CARDIOVASCULAR: Shows regular S1 and S2 with no gallop or murmur. Sternotomy scar is intact. The site of defibrillator explantation on the left side is present. ABDOMEN: Soft. EXTREMITIES: No pitting edema. Kenan Fam MD Jul 30, 2018 14:54
[2018-07-30 16:00] VITALS: BP 104/67
--- NOTE | 2018-07-30 17:25 | General Progress Note ---
Assessment/Plan Status: stable Assessment/Plan Assessment and Recommendations # Erythrocytosis potentially due to perfusion deficit and compensatory stat --> r/o malignancy, have ordered for epo level - PENDING --> TIBC 248, % sat 58, ferritin 87 --> otherwise, can consider sleep study if insomnia, any e/o rosario # Coagulopathy - mild, consider liver dysfunction --> US abd: No evidence for cholecystitis. Possible periportal hyperechogenicity. Minimal nodular surface contour to liver. Echogenic foci in the kidneys. # CHF exacerbation -- prn diuresis --> Cardiology is follwoing. Appreciate recs. --> Echocardiogram showed ejection fraction of around 15% to 20%. Continue Lasix 40 mg IV daily, lisinopril 10 mg daily, and Aldactone 25 mg daily and Coreg # Hx of CABG with pci recently at [facility] --> ICD as needed # ALMAS on ckd --> lasix given, monitor closely # Nausea. Zofran prn. Appreciate consultation greatly! Subjective Allergies: Coded Allergies: No Known Allergies (Unverified , 07/27/18) All Systems: reviewed and negative except above Subjective PT awake and alert no acute events. VS stable. Objective Last 24 Hour Vital Signs Date Time Temp Pulse Resp B/P (MAP) Pulse Ox O2 Delivery O2 Flow Rate FiO2 07/30/18 12:00 97.9 89 19 92/65 (74) 94 97.9 07/30/18 12:00 86 07/30/18 09:12 112/74 07/30/18 09:11 112/74 07/30/18 09:00 Nasal Cannula 2.0 07/30/18 08:00 103 07/30/18 08:00 97.3 85 19 112/74 (87) 100 97.3 07/30/18 04:00 97.4 87 18 104/77 (86) 97 97.4 07/30/18 04:00 84 07/30/18 00:00 96.6 89 18 99/71 (80) 95 96.6 07/30/18 00:00 84 07/29/18 21:00 Nasal Cannula 2.0 07/29/18 20:49 103/62 07/29/18 20:49 103/62 07/29/18 20:00 97.5 93 18 103/62 (76) 97 97.5 07/29/18 20:00 95 Intake and Output 07/29/18 07/30/18 18:59 06:59 Intake Total 250 ml 400 ml Output Total 275 ml Balance 250 ml 125 ml Intake Oral 250 ml 400 ml Output Urine Total 275 ml # Voids 3 Laboratory Tests 07/30/18 06:30: White Blood Count 8.5, Red Blood Count 5.35, Hemoglobin 17.3, Hematocrit 49.9, Mean Corpuscular Volume 93, Mean Corpuscular Hemoglobin 32.3H, Mean Corpuscular Hemoglobin Concent 34.5, Red Cell Distribution Width 12.3, Platelet Count 175, Mean Platelet Volume 8.4, Neutrophils (%) (Auto) 62.9, Lymphocytes (%) (Auto) 23.5, Monocytes (%) (Auto) 10.4H, Eosinophils (%) (Auto) 2.1, Basophils (%) ( Auto) 1.1, Sodium Level 134L, Potassium Level 3.8, Chloride Level 99, Carbon Dioxide Level 27, Anion Gap 8, Blood Urea Nitrogen 38H, Creatinine 1.3, Estimat Glomerular Filtration Rate 54.9, Glucose Level 97, Calcium Level 9.2 Height (Feet): 5 Height (Inches): 5.00 Weight (Pounds): 180 General Appearance: no apparent distress EENT: PERRL/EOMI Neck: normal alignment Cardiovascular: normal peripheral pulses Respiratory/Chest: no respiratory distress Abdomen: soft Marcin Henry MD Jul 30, 2018 17:25
[2018-07-30 20:00] VITALS: BP 124/75
[2018-07-30] MEDS: Atorvastatin 20mg tab ORAL SCH (20:52)
[2018-07-31] VITALS: BP 120/74
[2018-07-31 04:00] VITALS: BP 104/66
[2018-07-31 08:00] VITALS: BP 125/76
[2018-07-31] MEDS: Spironolactone 25mg tab ORAL SCH (08:49)
[2018-07-31] MEDS: HydrALAZINE 10mg Tab ORAL SCH ×2 (08:49→21:21)
[2018-07-31] MEDS: Heparin 5000 units/ml inj SUBQ SCH ×2 (08:52→21:23)
[2018-07-31] MEDS ORDERED: Sennosides 8.6mg ORAL PRN (09:00)
--- NOTE | 2018-07-31 09:03 | General Progress Note ---
Assessment/Plan Problem List: (1) CHF exacerbation ICD Codes: I50.9 - Heart failure, unspecified SNOMED: 25387950, 671031175 Qualifiers: Qualified Codes: I50.9 - Heart failure, unspecified (2) Hx of CABG ICD Codes: Z95.1 - Presence of aortocoronary bypass graft SNOMED: 308071728, 576348901 (3) Renal insufficiency ICD Codes: N28.9 - Disorder of kidney and ureter, unspecified SNOMED: 836610058, 366199337 Assessment/Plan #CHF exacerbation- resolved pt has elevated BNP, per records search he apparently had an EF of 10% ensure to optimize medical management recommend ICD placement however medical restricted, awaiting approval # Acute renal insufficiency, possible w/ superimposed CKD at baseline- improved pt given lasix, will monitor renal function closely # Hx of CABG, recent PCI at [facility] will c/w medical management recommend ICD #constipation added bowel regimen #Dispo per CM Isabella, patient is able to have ICD authorized by insurance and will stay in house over the weekend in preparation for such procedure Subjective ROS Limited/Unobtainable: No Allergies: Coded Allergies: No Known Allergies (Unverified , 07/27/18) All Systems: reviewed and negative except above Subjective Patient denies SOB, chest pain, heart palpitations and dizziness. Patient admits to constipation and states last BM was 2 days ago. Denies N, V. Objective Last 24 Hour Vital Signs Date Time Temp Pulse Resp B/P (MAP) Pulse Ox O2 Delivery O2 Flow Rate FiO2 07/31/18 08:49 125/76 07/31/18 08:49 125/76 07/31/18 04:00 97.0 85 18 104/66 (79) 95 97.0 07/31/18 04:00 89 07/31/18 00:00 83 07/31/18 00:00 96.4 74 20 120/74 (89) 94 96.4 07/30/18 21:00 Nasal Cannula 2.0 07/30/18 20:52 124/75 07/30/18 20:52 124/75 07/30/18 20:00 86 07/30/18 20:00 97.7 88 18 124/75 (91) 96 97.7 07/30/18 16:00 84 07/30/18 16:00 97.2 82 20 104/67 (79) 95 97.2 07/30/18 12:00 97.9 89 19 92/65 (74) 94 97.9 07/30/18 12:00 86 07/30/18 09:12 112/74 07/30/18 09:11 112/74 Intake and Output 07/30/18 07/31/18 19:00 07:00 Intake Total 1060 ml Balance 1060 ml Intake Oral 1060 ml # Voids 3 3 # Bowel Movements 2 Height (Feet): 5 Height (Inches): 5.00 Weight (Pounds): 180 General Appearance: WD/WN, no apparent distress, alert EENT: PERRL/EOMI, normal ENT inspection, TMs normal Neck: non-tender, normal alignment, supple, normal inspection Cardiovascular: normal peripheral pulses, normal rate, regular rhythm, no gallop/murmur, no JVD Respiratory/Chest: chest wall non-tender, lungs clear, normal breath sounds, no respiratory distress, no accessory muscle use Abdomen: non tender, soft, no organomegaly, no mass, hyperactive bowel sounds Extremities: normal range of motion, non-tender, normal inspection, no calf tenderness Edema: no edema noted Arm (L), no edema noted Arm (R), no edema noted Leg (L), no edema noted Leg (R), no edema noted Pedal (L), no edema noted Pedal (R), no edema noted Generalized Neurologic: statistical modeler II-XII grossly normal, no motor/sensory deficits Skin: normal pigmentation, warm/dry Tanya Moore DO Jul 31, 2018 09:03
[2018-07-31] MEDS: Docusate 100mg cap ORAL SCH ×2 (09:59→16:57)
[2018-07-31 12:00] VITALS: BP 106/73
--- NOTE | 2018-07-31 14:04 | General Progress Note ---
Assessment/Plan Status: stable Assessment/Plan # Erythrocytosis potentially due to perfusion deficit and compensatory stat --> r/o malignancy, have ordered for epo level - PENDING --> TIBC 248, % sat 58, ferritin 87 --> otherwise, can consider sleep study if insomnia, any e/o rosario # Coagulopathy - mild, consider liver dysfunction --> US abd: No evidence for cholecystitis. Possible periportal hyperechogenicity. Minimal nodular surface contour to liver. Echogenic foci in the kidneys. # CHF exacerbation -- prn diuresis --> Cardiology is following. Appreciate recs. --> Echocardiogram showed ejection fraction of around 15% to 20%. Continue Lasix 40 mg IV daily, lisinopril 10 mg daily, and Aldactone 25 mg daily and Coreg # Hx of CABG with pci recently at [facility] --> ICD as needed # ALMAS on ckd --> lasix given, monitor closely # Nausea. Zofran prn. Appreciate consultation greatly! Subjective Date patient seen: Jul 31, 2018 ROS Limited/Unobtainable: Yes Allergies: Coded Allergies: No Known Allergies (Unverified , 07/27/18) Subjective PT awake and alert no acute events. VS stable. Objective Last 24 Hour Vital Signs Date Time Temp Pulse Resp B/P (MAP) Pulse Ox O2 Delivery O2 Flow Rate FiO2 07/31/18 12:00 97.8 78 16 106/73 (84) 95 97.8 07/31/18 12:00 78 07/31/18 09:59 89 125/76 07/31/18 09:00 Nasal Cannula 2.0 07/31/18 08:49 125/76 07/31/18 08:49 125/76 07/31/18 08:00 82 07/31/18 08:00 97.4 86 16 125/76 (92) 97 97.4 07/31/18 04:00 97.0 85 18 104/66 (79) 95 97.0 07/31/18 04:00 89 07/31/18 00:00 83 07/31/18 00:00 96.4 74 20 120/74 (89) 94 96.4 07/30/18 21:00 Nasal Cannula 2.0 07/30/18 20:52 124/75 07/30/18 20:52 124/75 10/20/18 20:00 86 07/30/18 20:00 97.7 88 18 124/75 (91) 96 97.7 07/30/18 16:00 84 07/30/18 16:00 97.2 82 20 104/67 (79) 95 97.2 Intake and Output 07/30/18 07/31/18 19:00 07:00 Intake Total 1060 ml Balance 1060 ml Intake Oral 1060 ml # Voids 3 3 # Bowel Movements 2 Height (Feet): 5 Height (Inches): 5.00 Weight (Pounds): 180 General Appearance: no apparent distress EENT: PERRL/EOMI Neck: normal alignment Cardiovascular: normal peripheral pulses Respiratory/Chest: no respiratory distress Abdomen: soft Marcin Henry MD Jul 31, 2018 14:04
[2018-07-31 16:00] VITALS: BP 118/79
--- NOTE | 2018-07-31 18:27 | Cardiac Electrophysiology PN ---
Assessment/Plan Assessment/Plan 1. Exacerbation of congestive heart failure. EF 15% to 20%. Continue Lasix 20 daily, lisinopril 10 mg daily, and Aldactone 25 mg daily and Coreg 2. Status post removal of the defibrillator. The patient meets criteria for ICD implantation and is agreeable, however, patient has restricted medical. Needs to have it done at the [facility]. 3. Bifascicular block, right bundle-branch block, and left anterior fascicular block. No syncope. 4. Renal failure with creatinine 2.4. 5. SVT nonsustained. Continue Coreg Placement pending Subjective Subjective Comfortable in NAD. Awaiting placement Objective Last 24 Hour Vital Signs Date Time Temp Pulse Resp B/P (MAP) Pulse Ox O2 Delivery O2 Flow Rate FiO2 07/31/18 16:00 98 07/31/18 16:00 97.7 80 17 118/79 (92) 100 97.7 07/31/18 12:00 97.8 78 16 106/73 (84) 95 97.8 07/31/18 12:00 78 07/31/18 09:59 89 125/76 07/31/18 09:00 Nasal Cannula 2.0 07/31/18 08:49 125/76 07/31/18 08:49 125/76 07/31/18 08:00 82 07/31/18 08:00 97.4 86 16 125/76 (92) 97 97.4 07/31/18 04:00 97.0 85 18 104/66 (79) 95 97.0 07/31/18 04:00 89 07/31/18 00:00 83 07/31/18 00:00 96.4 74 20 120/74 (89) 94 96.4 07/30/18 21:00 Nasal Cannula 2.0 07/30/18 20:52 124/75 07/30/18 20:52 124/75 07/30/18 20:00 86 07/30/18 20:00 97.7 88 18 124/75 (91) 96 97.7 Intake and Output 07/30/18 07/31/18 19:00 07:00 Intake Total 1060 ml Balance 1060 ml Intake Oral 1060 ml # Voids 3 3 # Bowel Movements 2 Objective HEAD AND NECK: Shows positive JVD. LUNGS: Coarse rhonchi. CARDIOVASCULAR: Shows regular S1 and S2 with no gallop or murmur. Sternotomy scar is intact. The site of defibrillator explantation on the left side is present. ABDOMEN: Soft. EXTREMITIES: No pitting edema. Kenan Fam MD Jul 31, 2018 18:27
[2018-07-31 20:00] VITALS: BP 117/73
[2018-07-31] MEDS: Atorvastatin 20mg tab ORAL SCH (21:20)
[2018-08-01] VITALS (7 sets, daily range): BP systolic 111–146; BP diastolic 63–93
[2018-08-01] MEDS: Docusate 100mg cap ORAL SCH ×2 (09:12→18:05)
[2018-08-01] MEDS: Spironolactone 25mg tab ORAL SCH (09:12)
[2018-08-01] MEDS: HydrALAZINE 10mg Tab ORAL SCH ×2 (09:13→21:04)
[2018-08-01] MEDS: Heparin 5000 units/ml inj SUBQ SCH ×2 (09:18→21:00)
[2018-08-01] MEDS ORDERED: Fleet's Mineral Oil Enema RECTAL SCH (09:30)
[2018-08-01] MEDS ORDERED: ISOSORBIDE DINI10 MG ORAL (09:35)
[2018-08-01] MEDS ORDERED: APRESOLINE10 MG ORAL (09:35)
[2018-08-01] MEDS ORDERED: ASPIR 8181 MG ORAL (09:35)
[2018-08-01] MEDS ORDERED: FUROSEMIDE20 M1 ORAL (09:35)
[2018-08-01] MEDS ORDERED: LIPITOR20 MG ORAL (09:35)
[2018-08-01] MEDS ORDERED: LISINOPRIL10 MG ORAL (09:35)
[2018-08-01] MEDS ORDERED: ALDACTONE25 MG ORAL (09:35)
[2018-08-01] MEDS ORDERED: DOK100 M1 ORAL (09:35)
[2018-08-01] MEDS ORDERED: COREG3.125 MG ORAL (09:35)
--- NOTE | 2018-08-01 09:39 | General Progress Note ---
Assessment/Plan Problem List: (1) CHF exacerbation ICD Codes: I50.9 - Heart failure, unspecified SNOMED: 60620197, 924099693 Qualifiers: Qualified Codes: I50.9 - Heart failure, unspecified (2) Hx of CABG ICD Codes: Z95.1 - Presence of aortocoronary bypass graft SNOMED: 320223522, 191516874 (3) Renal insufficiency ICD Codes: N28.9 - Disorder of kidney and ureter, unspecified SNOMED: 766962825, 796880486 Assessment/Plan #CHF exacerbation- resolved pt has elevated BNP, per records search he apparently had an EF of 10% ensure to optimize medical management recommend ICD placement, patient unable to have pocedure done here and will be referred to outside facility # Acute on chronic kidney disease- improved pt given lasix, will monitor renal function closely restart lisinopril # Hx of CABG, recent PCI at [facility] will c/w medical management recommend ICD #constipation added bowel regimen #Dispo home with referral to outside facility for AICD placement Subjective Date patient seen: Aug 01, 2018 Time patient seen: 09:00 ROS Limited/Unobtainable: No Allergies: Coded Allergies: No Known Allergies (Unverified , 07/27/18) All Systems: reviewed and negative except above Subjective Patient denies SOB, chest pain, heart palpitations and dizziness. Patient states he has been ambulating around the floor with not NJ or chest pain. Objective Last 24 Hour Vital Signs Date Time Temp Pulse Resp B/P (MAP) Pulse Ox O2 Delivery O2 Flow Rate FiO2 08/01/18 09:13 137/83 08/01/18 09:12 69 137/83 08/01/18 09:12 137/83 08/01/18 08:00 97.8 69 16 137/83 (101) 99 97.8 08/01/18 04:00 88 08/01/18 04:00 97.4 80 19 111/74 (86) 98 97.4 08/01/18 00:00 69 08/01/18 00:00 97.4 74 19 112/63 (79) 98 97.4 07/31/18 21:21 79 117/73 07/31/18 21:21 117/73 07/31/18 21:20 117/73 07/31/18 21:00 Nasal Cannula 2.0 07/31/18 20:00 83 07/31/18 20:00 98.2 79 18 117/73 (88) 96 98.2 07/31/18 16:00 98 07/31/18 16:00 97.7 80 17 118/79 (92) 100 97.7 07/31/18 12:00 97.8 78 16 106/73 (84) 95 97.8 07/31/18 12:00 78 07/31/18 09:59 89 125/76 Intake and Output 07/31/18 08/01/18 19:00 07:00 Intake Total 1200 ml 120 ml Balance 1200 ml 120 ml Intake Oral 1200 ml 120 ml # Voids 6 2 # Bowel Movements 1 Height (Feet): 5 Height (Inches): 5.00 Weight (Pounds): 180 General Appearance: WD/WN, no apparent distress, alert EENT: PERRL/EOMI, normal ENT inspection Neck: non-tender, normal alignment, supple, abnormal alignment Cardiovascular: normal peripheral pulses, normal rate, regular rhythm, regularly irregular, no gallop/murmur, no JVD Respiratory/Chest: chest wall non-tender, lungs clear, normal breath sounds, no respiratory distress, no accessory muscle use Abdomen: normal bowel sounds, non tender, soft, no organomegaly, no mass Extremities: normal range of motion, non-tender, normal inspection, no calf tenderness Edema: no edema noted Arm (L), no edema noted Arm (R), no edema noted Leg (L), no edema noted Leg (R), no edema noted Pedal (L), no edema noted Pedal (R), no edema noted Generalized Neurologic: information security associate II-XII grossly normal, no motor/sensory deficits, alert, oriented x 3 Skin: normal pigmentation, warm/dry OscarTanya DO Aug 01, 2018 09:39
--- NOTE | 2018-08-01 09:51 | Discharge Summary ---
Discharge Summary Hospital Course Date of Admission Jul 27, 2018 at 10:38 Date of Discharge 08/01/18 Admitting Diagnosis Shortness of Breath, Congestive Heart Failure HPI Delonte Reyes is a 67 year old male who was admitted on Jul 27, 2018 at 10 :38 for Shortness Of Breath,Congestive Heart Failure Consultations Cardiology: Dr. Cristel Fu/Onc: Dr. Henry Hospital Course Pt is a 67 yo male w/ a PMH of Coronary artery disease, CABG 2009, recent pci at [facility], CHF w/ systolic failure of 10%. He presents for shortness of breath and worsening nausea. He states symptoms started yesterday so he decided to come to the ER. Of note, he used to have a pacemaker/defib device years ago but it was removed due to infection. He apparently was told to have it replaced but he refused. He currently acceptable to having it replaced. Upon presentation patient was found to have BNP of 1400, Cr 2.[address] segment changes on EKG and troponin of 0.03. Patient was admitted to the telemetry service for CHF exacerbation and placed on IV lasix. Cardiology consulted as well. Patient was medically optimized for CHF and converted to PO lasix. Echo was consistent with history of EF 10%. Cardiology is unable to replaced AICD here 2/2 restricted medical. Patient has a slate trimmer and will be instructed to have procedure done as outpatient. Kidney function has improved to cr 1.3. Otherwise labs are remarkable for hgb of 17 with EPO level pending. Recommend an outpatient sleep study to eval for ELVER. Discharge medications: Coreg 3.125 PO BID Asa 81 PO Daily Lipitor 40 PO QHS Aldactone 25 mg PO Daily Lisinopril 10 mg PO Daily Isordil 10 mg PO BID Hydralazine 10 mg PO BID Imaging: CT HEAD: vol loss Procedure: XRAY Chest 1v Indication: Dyspnea Comparison: None A single view chest radiograph was obtained. Findings: No definite infiltrate or pulmonary vascular congestion identified. Sternotomy is noted. The heart is enlarged. The aorta is mildly enlarged consistent with atherosclerotic vascular disease. The bones are osteopenic. Impression: No acute disease EXAM: Two-dimensional and M-mode echocardiogram with Doppler and color Doppler. INDICATION Congestive Heart Failure M-Mode DIMENSIONS IVSd 2.2 (0.7-1.1cm) Left Atrium (MM) 3.7 (1.6-4.0cm) LVDd 5.5 (3.5-5.6cm) Aortic Root 4.3 (2.0-3.7cm) PWd 1.5 (0.7-1.1cm) Aortic Cusp Exc. 1.8 (1.5-2.0cm) IVSs 1.8 cm LVDs 5.1 (2.5-4.0cm) PWs 2.1 cm Global left ventricular hypokinesis, except septal wall which is dyskinetic. Mild left ventricular enlargement with thinned out anteroseptal wall and presence of sclerotic changes may represent prior myocardial infarction, ischemic cardiomyopathy cannot be excluded. Left ventricular ejection fraction estimated to be 15-20 %. No evidence of left ventricular hypertrophy . Trivial pericardial effusion. Left atrial chamber sizes is within normal limits . Right cardiac chamber sizes are within normal limits . Focal aortic valve sclerosis with adequate cusp excursion. Moderately Thickened mitral valve leaflets with normal excursion. Moderately Mitral annulus and aortic root calcification. Pulmonic valve not well visualized. Normal tricuspid valve structure. . IVC at size 2.2 cm without physiologic collapse , suggestive to increase RA pressure . A color flow and spectral Doppler study was performed and revealed: Mild aortic regurgitation. Mild mitral regurgitation. Left ventricular diastolic function can not determined due to arrhythmia . Trace tricuspid regurgitation. Tricuspid systolic velocities suggests peak right ventricular systolic pressure of 20mmHg. Procedure: US ABD Complete EXAM: US Abdomen Complete CLINICAL HISTORY: ABD PAIN TECHNIQUE: Real-time ultrasound of the abdomen (complete) with image documentation. COMPARISON: No relevant prior studies available. FINDINGS: No gallstones. No gallbladder wall thickening. Gallbladder fold incidentally noted. Visualized CBD normal caliber. Sonographic Delatorre sign reported as negative. Possible periportal hyperechogenicity. There is a wide differential for this finding including inflammatory and infectious etiologies as well as pneumobilia. Can also be a normal incidental finding. Minimal nodular surface contour to liver. Correlate for underlying cirrhosis and/or other hepatocellular disease. Pancreas is not well seen. Right renal cyst. Echogenic foci in the kidneys. May represent non-obstructive calcifications. No hydronephrosis is appreciated. Visualized aorta normal caliber. No splenomegaly. No free fluid. IMPRESSION: No evidence for cholecystitis. Possible periportal hyperechogenicity. There is a wide differential for this finding including inflammatory and infectious etiologies as well as pneumobilia. Can also be a normal incidental finding. Minimal nodular surface contour to liver. Correlate for underlying cirrhosis and/or other hepatocellular disease. Echogenic foci in the kidneys. May represent non-obstructive calcifications. No hydronephrosis is appreciated. Other findings, as above. Discharge Discharge Disposition Patient was discharged to home Discharge Diagnoses: (1) CHF exacerbation (2) CKD (chronic kidney disease) (3) Elevated hemoglobin (4) Hx of CABG Tanya Moore DO Aug 01, 2018 09:51
--- NOTE | 2018-08-01 09:53 | Discharge Instructions ---
Discharge Instructions Discharge Instructions Follow up with: cardiology in 1-2 weeks, and check kidney function Call MD/Return to Hospital if: severe chest pain or shortness of breath, difficulty urinating Diet: 2 GM sodium (low sodium) Resume Normal Activity?: No Activity: resume normal activities Special Instructions Please follow up with cardiology regarding your heart function of 10%. You will need a procedure to place an AICD. We also recommend that you have an outpatient sleep study to evaluate for obstructive sleep apnea. For Congestive Heart Failure Reminder Report to your physician any weight gain of 5 pounds or more in one week. Tanya Moore DO Aug 01, 2018 09:53
[2018-08-01 10:36] LABS: BASOPHILS % (AUTO) 1.2 % (0.0-2.0); EOSINOPHILS % (AUTO) 1.7 % (0.0-3.0); HEMATOCRIT 51.7 % (42.0-52.0); HEMOGLOBIN 17.5 G/DL (14.2-18.0); LYMPHOCYTES % (AUTO) 19.7 % (20.0-45.0); MEAN CORPUSCULAR VOLUME 95 FL (80-99); MONOCYTES % (AUTO) 6.1 % (1.0-10.0); NEUTROPHILS % (AUTO) 71.3 % (45.0-75.0); PLATELET COUNT 182 K/UL (150-450); RED BLOOD COUNT 5.44 M/UL (4.70-6.10); RED CELL DISTRIBUTION WIDTH 11.9 % (11.6-14.8); WHITE BLOOD COUNT 9.9 K/UL (4.8-10.8)
[2018-08-01 10:37] LABS: ANION GAP 7 mmol/L (5-15); BLOOD UREA NITROGEN 34 mg/dL (7-18); CALCIUM 9.4 MG/DL (8.5-10.1); CARBON DIOXIDE 30 MMOL/L (21-32); CHLORIDE 100 MMOL/L (98-107); CREATININE 1.1 MG/DL (0.55-1.30); POTASSIUM 4.4 MMOL/L (3.5-5.1); SODIUM 137 MMOL/L (136-145)
--- NOTE | 2018-08-01 13:54 | Cardiac Electrophysiology PN ---
Assessment/Plan Assessment/Plan 1. Exacerbation of congestive heart failure. EF 15% to 20%. Continue Lasix 20 daily, lisinopril 10 mg daily, and Aldactone 25 mg daily and Coreg 2. Status post removal of the defibrillator. The patient meets criteria for ICD implantation and is agreeable. restaurant culinary manager ROSEMARIE patients insurance "restricted medical" who approved ICD implant during this hospitalization Will schedule for Wednesday with anesthesia 3. Bifascicular block, right bundle-branch block, and left anterior fascicular block. No syncope. 4. Renal failure with creatinine 2.4. 5. SVT nonsustained. Continue Coreg DW case management and RN Subjective Subjective Comfortable in NAD. No VT overnight Objective Last 24 Hour Vital Signs Date Time Temp Pulse Resp B/P (MAP) Pulse Ox O2 Delivery O2 Flow Rate FiO2 08/01/18 12:00 97.2 108 20 146/91 (109) 93 97.2 08/01/18 09:13 137/83 08/01/18 09:12 69 137/83 08/01/18 09:12 137/83 08/01/18 09:00 Nasal Cannula 2.0 08/01/18 08:00 97.8 69 16 137/83 (101) 99 97.8 08/01/18 07:43 77 08/01/18 04:00 88 08/01/18 04:00 97.4 80 19 111/74 (86) 98 97.4 08/01/18 00:00 69 08/01/18 00:00 97.4 74 19 112/63 (79) 98 97.4 07/31/18 21:21 79 117/73 07/31/18 21:21 117/73 07/31/18 21:20 117/73 07/31/18 21:00 Nasal Cannula 2.0 07/31/18 20:00 83 07/31/18 20:00 98.2 79 18 117/73 (88) 96 98.2 07/31/18 16:00 98 07/31/18 16:00 97.7 80 17 118/79 (92) 100 97.7 Intake and Output 07/31/18 08/01/18 19:00 07:00 Intake Total 1200 ml 120 ml Balance 1200 ml 120 ml Intake Oral 1200 ml 120 ml # Voids 6 2 # Bowel Movements 1 Laboratory Tests Test 08/01/18 10:10 White Blood Count 9.9 K/UL (4.8-10.8) Red Blood Count 5.44 M/UL (4.70-6.10) Hemoglobin 17.5 G/DL (14.2-18.0) Hematocrit 51.7 % (42.0-52.0) Mean Corpuscular Volume 95 FL (80-99) Mean Corpuscular Hemoglobin 32.1 PG (27.0-31.0) H Mean Corpuscular Hemoglobin Concent 33.8 G/DL (32.0-36.0) Red Cell Distribution Width 11.9 % (11.6-14.8) Platelet Count 182 K/UL (150-450) Mean Platelet Volume 8.4 FL (6.5-10.1) Neutrophils (%) (Auto) 71.3 % (45.0-75.0) Lymphocytes (%) (Auto) 19.7 % (20.0-45.0) L Monocytes (%) (Auto) 6.1 % (1.0-10.0) Eosinophils (%) (Auto) 1.7 % (0.0-3.0) Basophils (%) (Auto) 1.2 % (0.0-2.0) Sodium Level 137 MMOL/L (136-145) Potassium Level 4.4 MMOL/L (3.5-5.1) Chloride Level 100 MMOL/L (98-107) Carbon Dioxide Level 30 MMOL/L (21-32) Anion Gap 7 mmol/L (5-15) Blood Urea Nitrogen 34 mg/dL (7-18) H Creatinine 1.1 MG/DL (0.55-1.30) Estimat Glomerular Filtration Rate > 60 mL/min (>60) Glucose Level 98 MG/DL (74-106) Calcium Level 9.4 MG/DL (8.5-10.1) Objective HEAD AND NECK: Shows positive JVD. LUNGS: Coarse rhonchi. CARDIOVASCULAR: Shows regular S1 and S2 with no gallop or murmur. Sternotomy scar is intact. The site of defibrillator explantation on the left side is present. ABDOMEN: Soft. EXTREMITIES: No pitting edema. Kenan Fam MD Aug 01, 2018 13:54
--- NOTE | 2018-08-01 15:23 | General Progress Note ---
Assessment/Plan Status: stable Assessment/Plan # Erythrocytosis potentially due to perfusion deficit and compensatory stat --> r/o malignancy, have ordered for epo level - PENDING --> TIBC 248, % sat 58, ferritin 87 --> otherwise, can consider sleep study if insomnia, any e/o rosario --> Hgb consistently at ~17 # Coagulopathy - mild, consider liver dysfunction --> US abd: No evidence for cholecystitis. Possible periportal hyperechogenicity. Minimal nodular surface contour to liver. Echogenic foci in the kidneys. # CHF exacerbation -- prn diuresis --> Cardiology is following. Appreciate recs. --> Echocardiogram showed ejection fraction of around 15% to 20%. Continue Lasix 40 mg IV daily, lisinopril 10 mg daily, and Aldactone 25 mg daily and Coreg --> On beta mary # Hx of CABG with pci recently at [facility] --> ICD as needed # ALMAS on ckd --> lasix given, monitor closely # Nausea. Zofran prn. Appreciate consultation greatly! Subjective Date patient seen: Aug 01, 2018 ROS Limited/Unobtainable: Yes Allergies: Coded Allergies: No Known Allergies (Unverified , 07/27/18) Subjective Pt awake and alert. No acute events. VS stable. DC planning. Objective Last 24 Hour Vital Signs Date Time Temp Pulse Resp B/P (MAP) Pulse Ox O2 Delivery O2 Flow Rate FiO2 08/01/18 12:00 97.2 108 20 146/91 (109) 93 97.2 08/01/18 11:58 68 08/01/18 09:13 137/83 08/01/18 09:12 69 137/83 08/01/18 09:12 137/83 08/01/18 09:00 Nasal Cannula 2.0 08/01/18 08:00 97.8 69 16 137/83 (101) 99 97.8 08/01/18 07:43 77 08/01/18 04:00 88 08/01/18 04:00 97.4 80 19 111/74 (86) 98 97.4 08/01/18 00:00 69 08/01/18 00:00 97.4 74 19 112/63 (79) 98 97.4 07/31/18 21:21 79 117/73 07/31/18 21:21 117/73 07/31/18 21:20 117/73 07/31/18 21:00 Nasal Cannula 2.0 07/31/18 20:00 83 07/31/18 20:00 98.2 79 18 117/73 (88) 96 98.2 07/31/18 16:00 98 07/31/18 16:00 97.7 80 17 118/79 (92) 100 97.7 Intake and Output 07/31/18 08/01/18 19:00 07:00 Intake Total 1200 ml 120 ml Balance 1200 ml 120 ml Intake Oral 1200 ml 120 ml # Voids 6 2 # Bowel Movements 1 Laboratory Tests 08/01/18 10:10: White Blood Count 9.9, Red Blood Count 5.44, Hemoglobin 17.5, Hematocrit 51.7, Mean Corpuscular Volume 95, Mean Corpuscular Hemoglobin 32.1H, Mean Corpuscular Hemoglobin Concent 33.8, Red Cell Distribution Width 11.9, Platelet Count 182, Mean Platelet Volume 8.4, Neutrophils (%) (Auto) 71.3, Lymphocytes (%) (Auto) 19.7L, Monocytes (%) (Auto) 6.1, Eosinophils (%) (Auto) 1.7, Basophils (%) (Auto ) 1.2, Sodium Level 137, Potassium Level 4.4, Chloride Level 100, Carbon Dioxide Level 30, Anion Gap 7, Blood Urea Nitrogen 34H, Creatinine 1.1, Estimat Glomerular Filtration Rate > 60, Glucose Level 98, Calcium Level 9.4 Height (Feet): 5 Height (Inches): 5.00 Weight (Pounds): 180 General Appearance: no apparent distress EENT: PERRL/EOMI Neck: normal alignment Cardiovascular: normal peripheral pulses Respiratory/Chest: no respiratory distress Abdomen: soft Marcin Henry MD Aug 01, 2018 15:23
[2018-08-01] MEDS: Atorvastatin 20mg tab ORAL SCH (21:04)
[2018-08-02 04:00] VITALS: BP 135/91
--- NOTE | 2018-08-02 06:14 | General Progress Note ---
Assessment/Plan Assessment/Plan # Erythrocytosis potentially due to perfusion deficit and compensatory status --> r/o malignancy, have ordered for epo level - epo appears to be wnl --> TIBC 248, % sat 58, ferritin 87 --> otherwise, can consider sleep study if insomnia, any e/o rosario --> Hgb consistently at ~16-17 # Coagulopathy - mild, consider liver dysfunction --> US abd: No evidence for cholecystitis. Possible periportal hyperechogenicity. Minimal nodular surface contour to liver. Echogenic foci in the kidneys. --> recheck Pt/INR # CHF exacerbation -- prn diuresis --> Cardiology is following. Appreciate recs. --> Echocardiogram showed ejection fraction of around 15% to 20%. Continue Lasix 40 mg IV daily, lisinopril 10 mg daily, and Aldactone 25 mg daily and Coreg --> On beta mary # Hx of CABG with pci recently at [facility] --> ICD as needed # ALMAS on ckd --> lasix given, monitor closely # Nausea. Zofran prn. Appreciate consultation greatly! Subjective Constitutional: Reports: no symptoms HEENT: Reports: no symptoms Cardiovascular: Reports: no symptoms Respiratory: Reports: no symptoms Gastrointestinal/Abdominal: Reports: poor appetite Genitourinary: Reports: no symptoms Neurologic/Psychiatric: Reports: no symptoms Endocrine: Reports: no symptoms Hematologic/Lymphatic: Reports: anemia Allergies: Coded Allergies: No Known Allergies (Unverified , 07/27/18) Subjective Pt awake and alert. No acute events. VS stable. monitoring pt/inr Objective Last 24 Hour Vital Signs Date Time Temp Pulse Resp B/P (MAP) Pulse Ox O2 Delivery O2 Flow Rate FiO2 08/02/18 04:00 75 08/02/18 04:00 97.9 84 16 135/91 (106) 99 97.9 08/02/18 00:00 79 08/01/18 23:43 97.6 79 18 127/88 (101) 99 97.6 08/01/18 21:04 82 124/93 08/01/18 21:04 124/93 08/01/18 21:04 124/93 08/01/18 21:00 Room Air 08/01/18 20:00 78 08/01/18 20:00 97.4 82 16 124/93 (103) 99 97.4 08/01/18 16:00 97.3 86 18 129/71 (90) 95 97.3 08/01/18 15:13 93 08/01/18 12:00 97.2 108 20 146/91 (109) 93 97.2 08/01/18 11:58 68 08/01/18 09:13 137/83 08/01/18 09:12 69 137/83 08/01/18 09:12 137/83 08/01/18 09:00 Nasal Cannula 2.0 08/01/18 08:00 97.8 69 16 137/83 (101) 99 97.8 08/01/18 07:43 77 Intake and Output 08/01/18 08/02/18 19:00 07:00 Intake Total 1560 ml Balance 1560 ml Intake Oral 1560 ml # Voids 5 # Bowel Movements 1 Laboratory Tests 08/01/18 10:10: White Blood Count 9.9, Red Blood Count 5.44, Hemoglobin 17.5, Hematocrit 51.7, Mean Corpuscular Volume 95, Mean Corpuscular Hemoglobin 32.1H, Mean Corpuscular Hemoglobin Concent 33.8, Red Cell Distribution Width 11.9, Platelet Count 182, Mean Platelet Volume 8.4, Neutrophils (%) (Auto) 71.3, Lymphocytes (%) (Auto) 19.7L, Monocytes (%) (Auto) 6.1, Eosinophils (%) (Auto) 1.7, Basophils (%) (Auto ) 1.2, Sodium Level 137, Potassium Level 4.4, Chloride Level 100, Carbon Dioxide Level 30, Anion Gap 7, Blood Urea Nitrogen 34H, Creatinine 1.1, Estimat Glomerular Filtration Rate > 60, Glucose Level 98, Calcium Level 9.4 Height (Feet): 5 Height (Inches): 5.00 Weight (Pounds): 180 General Appearance: lethargic EENT: TMs normal Neck: supple Cardiovascular: regular rhythm Respiratory/Chest: normal breath sounds Abdomen: normal bowel sounds Extremities: non-tender Edema: 1+ Leg (L), 1+ Leg (R) Edema: mild edema Neurologic: alert Skin: warm/dry Marcin Henry MD Aug 02, 2018 06:14
[2018-08-02 07:07] LABS: BASOPHILS % (AUTO) 0.9 % (0.0-2.0); EOSINOPHILS % (AUTO) 2.7 % (0.0-3.0); HEMATOCRIT 47.7 % (42.0-52.0); HEMOGLOBIN 16.8 G/DL (14.2-18.0); LYMPHOCYTES % (AUTO) 21.3 % (20.0-45.0); MEAN CORPUSCULAR VOLUME 93 FL (80-99); MONOCYTES % (AUTO) 7.1 % (1.0-10.0); NEUTROPHILS % (AUTO) 68.1 % (45.0-75.0); PLATELET COUNT 158 K/UL (150-450); RED BLOOD COUNT 5.11 M/UL (4.70-6.10); RED CELL DISTRIBUTION WIDTH 11.9 % (11.6-14.8); WHITE BLOOD COUNT 9.2 K/UL (4.8-10.8)
[2018-08-02 07:17] LABS: ALANINE AMINOTRANSFERASE 26 U/L (12-78); ALBUMIN/GLOBULIN RATIO 0.7 (1.0-2.7); ALKALINE PHOSPHATASE 107 U/L (46-116); ANION GAP 9 mmol/L (5-15); ASPARTATE AMINO TRANSFERASE 27 U/L (15-37); BILIRUBIN,TOTAL 0.3 MG/DL (0.2-1.0); BLOOD UREA NITROGEN 34 mg/dL (7-18); CALCIUM 9.1 MG/DL (8.5-10.1); CARBON DIOXIDE 25 MMOL/L (21-32); CHLORIDE 101 MMOL/L (98-107); CREATININE 1.2 MG/DL (0.55-1.30); SODIUM 135 MMOL/L (136-145)
[2018-08-02 08:00] VITALS: BP 140/78
[2018-08-02 08:20] LABS: INR 1.1 (0.9-1.1)
[2018-08-02] MEDS: HydrALAZINE 10mg Tab ORAL SCH ×2 (08:47→20:41)
[2018-08-02] MEDS: Spironolactone 25mg tab ORAL SCH (08:47)
[2018-08-02] MEDS: Docusate 100mg cap ORAL SCH ×2 (08:47→18:06)
[2018-08-02] MEDS: Heparin 5000 units/ml inj SUBQ SCH ×2 (08:55→20:35)
--- NOTE | 2018-08-02 11:41 | General Progress Note ---
Assessment/Plan Problem List: (1) CHF exacerbation ICD Codes: I50.9 - Heart failure, unspecified SNOMED: 82491772, 579547551 Qualifiers: Qualified Codes: I50.9 - Heart failure, unspecified (2) Hx of CABG ICD Codes: Z95.1 - Presence of aortocoronary bypass graft SNOMED: 374200959, 101242376 (3) Renal insufficiency ICD Codes: N28.9 - Disorder of kidney and ureter, unspecified SNOMED: 480083627, 981030491 (4) GERD (gastroesophageal reflux disease) ICD Codes: K21.9 - Gastro-esophageal reflux disease without esophagitis SNOMED: 879747381 (5) Constipation ICD Codes: K59.00 - Constipation, unspecified SNOMED: 53623183 Assessment/Plan #CHF exacerbation- resolved pt has elevated BNP, per records search he apparently had an EF of 10% ensure to optimize medical management, increased coreg from 3.125 to 6.25 cont other cardiac meds Cardiology has scheduled AICD with anesthesia for tomorrow 08/03/18 NPO after midnight and hold heparin after midnight for procedure tomorrow # Acute on chronic kidney disease- improved pt given lasix, will monitor renal function closely restart lisinopril # Hx of CABG, recent PCI at [facility] will c/w medical management recommend ICD #constipation added bowel regimen #GERD protonix daily, famotidine PRN #Dispo home, one midnight after procedure if no complications Subjective Date patient seen: Aug 02, 2018 Time patient seen: 11:00 ROS Limited/Unobtainable: No Allergies: Coded Allergies: No Known Allergies (Unverified , 07/27/18) All Systems: reviewed and negative except above Subjective Patient denies SOB, chest pain, heart palpitations and dizziness. Patient states he has been ambulating around the floor with not NJ or chest pain. He had BM yesterday. Patient today complains of burning in chest that is the same as heart burn he has had in the past. Objective Last 24 Hour Vital Signs Date Time Temp Pulse Resp B/P (MAP) Pulse Ox O2 Delivery O2 Flow Rate FiO2 08/02/18 08:47 68 140/78 08/02/18 08:47 140/78 08/02/18 08:47 140/78 08/02/18 08:10 Room Air 08/02/18 08:00 97.5 68 22 140/78 (98) 97.5 08/02/18 07:38 70 08/02/18 04:00 75 08/02/18 04:00 97.9 84 16 135/91 (106) 99 97.9 08/02/18 00:00 79 08/01/18 23:43 97.6 79 18 127/88 (101) 99 97.6 08/01/18 21:04 82 124/93 08/01/18 21:04 124/93 08/01/18 21:04 124/93 08/01/18 21:00 Room Air 08/01/18 20:00 78 08/01/18 20:00 97.4 82 16 124/93 (103) 99 97.4 08/01/18 16:00 97.3 86 18 129/71 (90) 95 97.3 08/01/18 15:13 93 08/01/18 12:00 97.2 108 20 146/91 (109) 93 97.2 08/01/18 11:58 68 Intake and Output 08/01/18 08/02/18 19:00 07:00 Intake Total 1560 ml 780 ml Balance 1560 ml 780 ml Intake Oral 1560 ml 780 ml # Voids 5 4 # Bowel Movements 1 Laboratory Tests 08/02/18 06:10: White Blood Count 9.2, Red Blood Count 5.11, Hemoglobin 16.8, Hematocrit 47.7, Mean Corpuscular Volume 93, Mean Corpuscular Hemoglobin 32.8H, Mean Corpuscular Hemoglobin Concent 35.2, Red Cell Distribution Width 11.9, Platelet Count 158, Mean Platelet Volume 8.7, Neutrophils (%) (Auto) 68.1, Lymphocytes (%) (Auto) 21.3, Monocytes (%) (Auto) 7.1, Eosinophils (%) (Auto) 2.7, Basophils (%) (Auto ) 0.9, Sodium Level 135L, Potassium Level 4.0, Chloride Level 101, Carbon Dioxide Level 25, Anion Gap 9, Blood Urea Nitrogen 34H, Creatinine 1.2, Estimat Glomerular Filtration Rate > 60, Glucose Level 111H, Calcium Level 9.1, Total Bilirubin 0.3, Aspartate Amino Transf (AST/SGOT) 27, Alanine Aminotransferase ( ALT/SGPT) 26, Alkaline Phosphatase 107, Total Protein 7.5, Albumin 3.0L, Globulin 4.5, Albumin/Globulin Ratio 0.7L 08/02/18 07:40: Prothrombin Time 11.3, Prothromb Time International Ratio 1.1 Height (Feet): 5 Height (Inches): 5.00 Weight (Pounds): 180 General Appearance: WD/WN, no apparent distress, alert EENT: PERRL/EOMI, normal ENT inspection, TMs normal Neck: non-tender, normal alignment, supple, normal inspection Cardiovascular: normal peripheral pulses, normal rate, regular rhythm, regularly irregular, no gallop/murmur, no JVD Respiratory/Chest: chest wall non-tender, lungs clear, normal breath sounds, no respiratory distress, no accessory muscle use Abdomen: normal bowel sounds, non tender, soft, no organomegaly, no mass Extremities: normal range of motion, non-tender, normal inspection, no calf tenderness Edema: no edema noted Arm (L), no edema noted Arm (R), no edema noted Leg (L), no edema noted Leg (R), no edema noted Pedal (L), no edema noted Pedal (R), no edema noted Generalized 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
--- NOTE | 2018-08-02 11:58 | Anethesia Preoperative Eval ---
Anesthesia Pre-op PMH/ROS General Date of Evaluation: Aug 02, 2018 Time of Evaluation: 11:53 Anesthesiologist: Nabil ASA Score: ASA 3 Mallampati Score Class I : Soft palate, uvula, fauces, pillars visible Class II: Soft palate, uvula, fauces visible Class III: Soft palate, base of uvula visible Class IV: Only hard plate visible Mallampati Classification: Class II Surgeon: Lyn Diagnosis: CHF Surgical Procedure: ICD placement Anesthesia History: none Family History: no anesthesia problems Allergies: Coded Allergies: No Known Allergies (Unverified , 07/27/18) Medications: see eMAR Patient NPO?: Yes Past Medical History Cardiovascular: Reports: HTN, CAD, arrhythmia - occasional SVT; Denies: RI, valve dz, other Pulmonary: Reports: asthma - mild; Denies: COPD, ELVER, other Gastrointestinal/Genitourinary: Reports: GERD, CRI; Denies: ESRD, other Neurologic/Psychiatric: Reports: depression/anxiety; Denies: dementia, CVA, TIA, other Endocrine: Denies: DM, hypothyroidism, steroids, other HEENT: Denies: cataract (L), cataract (R), glaucoma, [place] (L), [place] (R), other Hematology/Immune: Reports: other - polycytemia; Denies: anemia, DVT, bleeding disorder Musculoskeletal/Integumentary: Denies: OA, RA, DJD, DDD, edema, other PMH Narrative: as above PSxH Narrative: CABG ICD placement and removal, coronary angioplasty Anesthesia Pre-op Phys. Exam Physician Exam Last Vital Signs Date Time Temp Pulse Resp B/P (MAP) Pulse Ox O2 Delivery O2 Flow Rate FiO2 08/02/18 08:47 68 140/78 08/02/18 08:10 Room Air 08/02/18 08:00 97.5 22 97.5 08/02/18 04:00 99 08/01/18 09:00 2.0 Constitutional: NAD Neurologic: CN 2-12 intact Cardiovascular: RRR, no M/R/G Respiratory: CTA Gastrointestinal: S/NT/ND Airway Exam Mallampati Score: Class III MO: limited Neck: stiff ROM: limited Teeth: missing Dentures: no upper, no lower Anesthesia Pre-op A/P Labs Hematology Test 08/02/18 06:10 White Blood Count 9.2 K/UL (4.8-10.8) Red Blood Count 5.11 M/UL (4.70-6.10) Hemoglobin 16.8 G/DL (14.2-18.0) Hematocrit 47.7 % (42.0-52.0) Mean Corpuscular Volume 93 FL (80-99) Mean Corpuscular Hemoglobin 32.8 PG (27.0-31.0) H Mean Corpuscular Hemoglobin Concent 35.2 G/DL (32.0-36.0) Red Cell Distribution Width 11.9 % (11.6-14.8) Platelet Count 158 K/UL (150-450) Mean Platelet Volume 8.7 FL (6.5-10.1) Neutrophils (%) (Auto) 68.1 % (45.0-75.0) Lymphocytes (%) (Auto) 21.3 % (20.0-45.0) Monocytes (%) (Auto) 7.1 % (1.0-10.0) Eosinophils (%) (Auto) 2.7 % (0.0-3.0) Basophils (%) (Auto) 0.9 % (0.0-2.0) Coagulation Test 08/02/18 07:40 Prothrombin Time 11.3 SEC (9.30-11.50) Prothromb Time International Ratio 1.1 (0.9-1.1) Chemistry Test 08/02/18 06:10 Sodium Level 135 MMOL/L (136-145) L Potassium Level 4.0 MMOL/L (3.5-5.1) Chloride Level 101 MMOL/L (98-107) Carbon Dioxide Level 25 MMOL/L (21-32) Anion Gap 9 mmol/L (5-15) Blood Urea Nitrogen 34 mg/dL (7-18) H Creatinine 1.2 MG/DL (0.55-1.30) Estimat Glomerular Filtration Rate > 60 mL/min (>60) Glucose Level 111 MG/DL (74-106) H Calcium Level 9.1 MG/DL (8.5-10.1) Total Bilirubin 0.3 MG/DL (0.2-1.0) Aspartate Amino Transf (AST/SGOT) 27 U/L (15-37) Alanine Aminotransferase (ALT/SGPT) 26 U/L (12-78) Alkaline Phosphatase 107 U/L (46-116) Total Protein 7.5 G/DL (6.4-8.2) Albumin 3.0 G/DL (3.4-5.0) L Globulin 4.5 g/dL Albumin/Globulin Ratio 0.7 (1.0-2.7) L Studies Pre-op Studies: EKG - SR RBBB, occasional PVC, echo - EF 15-20% Risk Assessment & Plan Assessment: ASA 3 Plan: MAC with minimal sedation Vikas Ferrer MD Aug 02, 2018 11:58
[2018-08-02 12:00] VITALS: BP 91/62
--- NOTE | 2018-08-02 15:44 | Cardiac Electrophysiology PN ---
Assessment/Plan Assessment/Plan 1. Exacerbation of CHF. EF 15% to 20%. Continue Lasix 20 daily, lisinopril 10 mg daily, and Aldactone 25 mg daily and Coreg 2. Status post removal of the defibrillator. The patient meets criteria for ICD implantation and is agreeable. route sales manager ROSEMARIE patients insurance "restricted medical" who approved ICD implant during this hospitalization On schedule for tomorrow 3. Bifascicular block, right bundle-branch block, and left anterior fascicular block. No syncope. 4. Renal failure with creatinine 2.4. 5. Nonsustained VT. Continue Coreg DW RN Subjective Subjective Comfortable in NAD. No VT overnight.Scheduled for ICD implant tomorrow Objective Last 24 Hour Vital Signs Date Time Temp Pulse Resp B/P (MAP) Pulse Ox O2 Delivery O2 Flow Rate FiO2 08/02/18 12:00 97.5 79 21 91/62 (72) 94 97.5 08/02/18 11:36 70 08/02/18 08:47 68 140/78 08/02/18 08:47 140/78 08/02/18 08:47 140/78 08/02/18 08:10 Room Air 08/02/18 08:00 97.5 68 22 140/78 (98) 97.5 08/02/18 07:38 70 08/02/18 04:00 75 08/02/18 04:00 97.9 84 16 135/91 (106) 99 97.9 08/02/18 00:00 79 08/01/18 23:43 97.6 79 18 127/88 (101) 99 97.6 08/01/18 21:04 82 124/93 08/01/18 21:04 124/93 08/01/18 21:04 124/93 08/01/18 21:00 Room Air 08/01/18 20:00 78 08/01/18 20:00 97.4 82 16 124/93 (103) 99 97.4 08/01/18 16:00 97.3 86 18 129/71 (90) 95 97.3 Intake and Output 08/01/18 08/02/18 19:00 07:00 Intake Total 1560 ml 780 ml Balance 1560 ml 780 ml Intake Oral 1560 ml 780 ml # Voids 5 4 # Bowel Movements 1 Laboratory Tests Test 08/02/18 06:10 08/02/18 07:40 White Blood Count 9.2 K/UL (4.8-10.8) Red Blood Count 5.11 M/UL (4.70-6.10) Hemoglobin 16.8 G/DL (14.2-18.0) Hematocrit 47.7 % (42.0-52.0) Mean Corpuscular Volume 93 FL (80-99) Mean Corpuscular Hemoglobin 32.8 PG (27.0-31.0) H Mean Corpuscular Hemoglobin Concent 35.2 G/DL (32.0-36.0) Red Cell Distribution Width 11.9 % (11.6-14.8) Platelet Count 158 K/UL (150-450) Mean Platelet Volume 8.7 FL (6.5-10.1) Neutrophils (%) (Auto) 68.1 % (45.0-75.0) Lymphocytes (%) (Auto) 21.3 % (20.0-45.0) Monocytes (%) (Auto) 7.1 % (1.0-10.0) Eosinophils (%) (Auto) 2.7 % (0.0-3.0) Basophils (%) (Auto) 0.9 % (0.0-2.0) Sodium Level 135 MMOL/L (136-145) L Potassium Level 4.0 MMOL/L (3.5-5.1) Chloride Level 101 MMOL/L (98-107) Carbon Dioxide Level 25 MMOL/L (21-32) Anion Gap 9 mmol/L (5-15) Blood Urea Nitrogen 34 mg/dL (7-18) H Creatinine 1.2 MG/DL (0.55-1.30) Estimat Glomerular Filtration Rate > 60 mL/min (>60) Glucose Level 111 MG/DL (74-106) H Calcium Level 9.1 MG/DL (8.5-10.1) Total Bilirubin 0.3 MG/DL (0.2-1.0) Aspartate Amino Transf (AST/SGOT) 27 U/L (15-37) Alanine Aminotransferase (ALT/SGPT) 26 U/L (12-78) Alkaline Phosphatase 107 U/L (46-116) Total Protein 7.5 G/DL (6.4-8.2) Albumin 3.0 G/DL (3.4-5.0) L Globulin 4.5 g/dL Albumin/Globulin Ratio 0.7 (1.0-2.7) L Prothrombin Time 11.3 SEC (9.30-11.50) Prothromb Time International Ratio 1.1 (0.9-1.1) Objective HEAD AND NECK: Positive JVD. LUNGS: Coarse rhonchi. CARDIOVASCULAR: Shows regular S1 and S2 with no gallop or murmur. Sternotomy scar is intact. The site of defibrillator explantation on the left side is present. ABDOMEN: Soft. EXTREMITIES: No pitting edema. Kenan Fam MD Aug 02, 2018 15:44
[2018-08-02 16:00] VITALS: BP 124/77
[2018-08-02 20:00] VITALS: BP 128/69
[2018-08-02] MEDS: Carvedilol 6.25mg Tab ORAL SCH (20:40)
[2018-08-02] MEDS: Atorvastatin 20mg tab ORAL SCH (20:41)
[2018-08-03] VITALS (15 sets, daily range): BP systolic 101–132; BP diastolic 65–93
[2018-08-03 07:35] LABS: BASOPHILS % (AUTO) 1.1 % (0.0-2.0); EOSINOPHILS % (AUTO) 2.4 % (0.0-3.0); HEMOGLOBIN 16.5 G/DL (14.2-18.0); LYMPHOCYTES % (AUTO) 20.9 % (20.0-45.0); MEAN CORPUSCULAR VOLUME 93 FL (80-99); MONOCYTES % (AUTO) 8.1 % (1.0-10.0); NEUTROPHILS % (AUTO) 67.5 % (45.0-75.0); PLATELET COUNT 178 K/UL (150-450); RED BLOOD COUNT 5.14 M/UL (4.70-6.10); RED CELL DISTRIBUTION WIDTH 11.8 % (11.6-14.8); WHITE BLOOD COUNT 9.3 K/UL (4.8-10.8)
[2018-08-03 07:59] LABS: ALANINE AMINOTRANSFERASE 28 U/L (12-78); ALBUMIN/GLOBULIN RATIO 0.7 (1.0-2.7); ALKALINE PHOSPHATASE 104 U/L (46-116); ANION GAP 9 mmol/L (5-15); ASPARTATE AMINO TRANSFERASE 28 U/L (15-37); BILIRUBIN,TOTAL 0.3 MG/DL (0.2-1.0); BLOOD UREA NITROGEN 41 mg/dL (7-18); CALCIUM 9.2 MG/DL (8.5-10.1); CARBON DIOXIDE 26 MMOL/L (21-32); CHLORIDE 100 MMOL/L (98-107); CREATININE 1.3 MG/DL (0.55-1.30); POTASSIUM 4.1 MMOL/L (3.5-5.1); SODIUM 135 MMOL/L (136-145)
[2018-08-03] MEDS: Heparin 5000 units/ml inj SUBQ SCH ×2 (08:40→20:10)
[2018-08-03] MEDS: Docusate 100mg cap ORAL SCH ×2 (09:47→17:50)
[2018-08-03] MEDS: Spironolactone 25mg tab ORAL SCH (09:48)
[2018-08-03] MEDS: Carvedilol 6.25mg Tab ORAL SCH ×2 (09:48→20:19)
[2018-08-03] MEDS: HydrALAZINE 10mg Tab ORAL SCH ×2 (09:49→20:18)
[2018-08-03] MEDS ORDERED: Lidocaine 1% Plain 30 ml INJ ONE ×2 (12:29→14:35)
[2018-08-03] MEDS ORDERED: Propofol 200mg/20ml IV ONE ×2 (12:49→15:24)
[2018-08-03] MEDS ORDERED: Lidocaine 1% MPF 10mg/ml 5ml ONE (12:49)
[2018-08-03] MEDS ORDERED: fentaNYL 100 mcg/2 mL IV ONE (12:49)
[2018-08-03] MEDS ORDERED: Sterile Water Irrig 1000ml IRRIG ONE (13:00)
[2018-08-03] MEDS ORDERED: NS Irrig 1000ml ONE (13:00)
[2018-08-03] MEDS ORDERED: NS 275ml ONE (13:00)
[2018-08-03] MEDS ORDERED: Isovue-M 300 15ml INJ ONE ×2 (13:10→14:45)
--- NOTE | 2018-08-03 13:51 | General Progress Note ---
Assessment/Plan Status: stable Assessment/Plan # Erythrocytosis potentially due to perfusion deficit and compensatory status --> r/o malignancy, have ordered for epo level - epo appears to be wnl --> TIBC 248, % sat 58, ferritin 87 --> otherwise, can consider sleep study if insomnia, any e/o rosario --> Hgb consistently at ~16-17 --> Improved # Coagulopathy - mild, consider liver dysfunction. --> US abd: No evidence for cholecystitis. Possible periportal hyperechogenicity. Minimal nodular surface contour to liver. Echogenic foci in the kidneys. --> recheck Pt/INR --> INR has normalized. # CHF exacerbation -- prn diuresis --> Cardiology is following. Appreciate recs. --> Echocardiogram showed ejection fraction of around 15% to 20%. Continue Lasix 40 mg IV daily, lisinopril 10 mg daily, and Aldactone 25 mg daily and Coreg --> > On beta mary # Hx of CABG with pci recently at [facility] --> ICD as needed # ALMAS on ckd --> lasix given, monitor closely # Nausea. Zofran prn. Appreciate consultation greatly! Subjective Date patient seen: Aug 03, 2018 ROS Limited/Unobtainable: Yes Allergies: Coded Allergies: No Known Allergies (Unverified , 07/27/18) Subjective Pt awake and alert. No acute events. AICD pending. Objective Last 24 Hour Vital Signs Date Time Temp Pulse Resp B/P (MAP) Pulse Ox O2 Delivery O2 Flow Rate FiO2 08/03/18 11:47 97.2 20 101/70 (80) 77 97.2 08/03/18 09:49 126/76 (93) 73 08/03/18 09:49 126/79 08/03/18 09:48 73 126/79 08/03/18 09:48 126/79 08/03/18 09:00 Room Air 08/03/18 08:00 73 08/03/18 08:00 98.0 72 20 119/73 (88) 96 98.0 08/03/18 04:00 71 08/03/18 04:00 97.2 82 17 115/68 (84) 96 97.2 08/03/18 00:00 70 08/03/18 00:00 97.4 80 18 113/71 (85) 98 97.4 08/02/18 21:00 Room Air 08/02/18 20:41 124/77 08/02/18 20:41 124/77 08/02/18 20:40 67 124/77 08/02/18 20:00 77 08/02/18 20:00 97.3 77 18 128/69 (88) 96 97.3 08/02/18 16:00 96.6 67 22 124/77 (93) 97 96.6 08/02/18 15:37 67 Intake and Output 08/02/18 08/03/18 19:00 07:00 Intake Total 600 ml Balance 600 ml Intake Oral 600 ml # Voids 2 Laboratory Tests 08/03/18 06:30: White Blood Count 9.3, Red Blood Count 5.14, Hemoglobin 16.5, Hematocrit 48.0, Mean Corpuscular Volume 93, Mean Corpuscular Hemoglobin 32.1H, Mean Corpuscular Hemoglobin Concent 34.3, Red Cell Distribution Width 11.8, Platelet Count 178, Mean Platelet Volume 9.1, Neutrophils (%) (Auto) 67.5, Lymphocytes (%) (Auto) 20.9, Monocytes (%) (Auto) 8.1, Eosinophils (%) (Auto) 2.4, Basophils (%) (Auto ) 1.1, Sodium Level 135L, Potassium Level 4.1, Chloride Level 100, Carbon Dioxide Level 26, Anion Gap 9, Blood Urea Nitrogen 41H, Creatinine 1.3, Estimat Glomerular Filtration Rate 54.9, Glucose Level 112H, Calcium Level 9.2, Total Bilirubin 0.3, Aspartate Amino Transf (AST/SGOT) 28, Alanine Aminotransferase ( ALT/SGPT) 28, Alkaline Phosphatase 104, Total Protein 7.5, Albumin 3.0L, Globulin 4.5, Albumin/Globulin Ratio 0.7L Height (Feet): 5 Height (Inches): 6.00 Weight (Pounds): 176 General Appearance: no apparent distress EENT: PERRL/EOMI Neck: normal alignment Cardiovascular: normal peripheral pulses Respiratory/Chest: no respiratory distress Abdomen: soft Marcin Henry MD Aug 03, 2018 13:51
--- NOTE | 2018-08-03 15:23 | General Progress Note ---
Assessment/Plan Problem List: (1) CHF exacerbation ICD Codes: I50.9 - Heart failure, unspecified SNOMED: 72023214, 944597070 Qualifiers: Qualified Codes: I50.9 - Heart failure, unspecified (2) Hx of CABG ICD Codes: Z95.1 - Presence of aortocoronary bypass graft SNOMED: 341256699, 914072103 (3) Renal insufficiency ICD Codes: N28.9 - Disorder of kidney and ureter, unspecified SNOMED: 993158565, 887786715 (4) GERD (gastroesophageal reflux disease) ICD Codes: K21.9 - Gastro-esophageal reflux disease without esophagitis SNOMED: 669989539 (5) Constipation ICD Codes: K59.00 - Constipation, unspecified SNOMED: 07872191 Assessment/Plan #CHF exacerbation- resolved pt has elevated BNP, per records search he apparently had an EF of 10% ensure to optimize medical management Cardiology has scheduled AICD today will follow up after surgery # Acute on chronic kidney disease- improved pt given lasix, will monitor renal function closely restart lisinopril # Hx of CABG, recent PCI at [facility] c/w medical management recommend ICD #constipation added bowel regimen #GERD protonix daily, famotidine PRN #Dispo home, one midnight after procedure if no complications Subjective Date patient seen: Aug 03, 2018 ROS Limited/Unobtainable: No Allergies: Coded Allergies: No Known Allergies (Unverified , 07/27/18) Subjective patient doing well no chest pain or sob Objective Last 24 Hour Vital Signs Date Time Temp Pulse Resp B/P (MAP) Pulse Ox O2 Delivery O2 Flow Rate FiO2 08/03/18 11:47 97.2 20 101/70 (80) 77 97.2 08/03/18 09:49 126/76 (93) 73 08/03/18 09:49 126/79 08/03/18 09:48 73 126/79 08/03/18 09:48 126/79 08/03/18 09:00 Room Air 08/03/18 08:00 73 08/03/18 08:00 98.0 72 20 119/73 (88) 96 98.0 08/03/18 04:00 71 08/03/18 04:00 97.2 82 17 115/68 (84) 96 97.2 08/03/18 00:00 70 08/03/18 00:00 97.4 80 18 113/71 (85) 98 97.4 08/02/18 21:00 Room Air 08/02/18 20:41 124/77 08/02/18 20:41 124/77 18 20:40 67 124/77 08/02/18 20:00 77 08/02/18 20:00 97.3 77 18 128/69 (88) 96 97.3 08/02/18 16:00 96.6 67 22 124/77 (93) 97 96.6 08/02/18 15:37 67 Intake and Output 08/02/18 08/03/18 19:00 07:00 Intake Total 600 ml Balance 600 ml Intake Oral 600 ml # Voids 2 Laboratory Tests 08/03/18 06:30: White Blood Count 9.3, Red Blood Count 5.14, Hemoglobin 16.5, Hematocrit 48.0, Mean Corpuscular Volume 93, Mean Corpuscular Hemoglobin 32.1H, Mean Corpuscular Hemoglobin Concent 34.3, Red Cell Distribution Width 11.8, Platelet Count 178, Mean Platelet Volume 9.1, Neutrophils (%) (Auto) 67.5, Lymphocytes (%) (Auto) 20.9, Monocytes (%) (Auto) 8.1, Eosinophils (%) (Auto) 2.4, Basophils (%) (Auto ) 1.1, Sodium Level 135L, Potassium Level 4.1, Chloride Level 100, Carbon Dioxide Level 26, Anion Gap 9, Blood Urea Nitrogen 41H, Creatinine 1.3, Estimat Glomerular Filtration Rate 54.9, Glucose Level 112H, Calcium Level 9.2, Total Bilirubin 0.3, Aspartate Amino Transf (AST/SGOT) 28, Alanine Aminotransferase ( ALT/SGPT) 28, Alkaline Phosphatase 104, Total Protein 7.5, Albumin 3.0L, Globulin 4.5, Albumin/Globulin Ratio 0.7L Height (Feet): 5 Height (Inches): 6.00 Weight (Pounds): 176 General Appearance: WD/WN, no apparent distress, alert EENT: PERRL/EOMI, normal ENT inspection Neck: non-tender, normal alignment, supple, abnormal alignment Cardiovascular: normal peripheral pulses, normal rate, regular rhythm, regularly irregular, no gallop/murmur, no JVD Respiratory/Chest: chest wall non-tender, lungs clear, normal breath sounds, no respiratory distress, no accessory muscle use Abdomen: normal bowel sounds, non tender, soft, no organomegaly, no mass, abnormal bowel sounds Extremities: normal range of motion, non-tender, no calf tenderness Edema: no edema noted Arm (L), no edema noted Arm (R), no edema noted Leg (L), no edema noted Leg (R), no edema noted Pedal (L), no edema noted Pedal (R), no edema noted Generalized Neurologic: dogman/woman II-XII grossly normal, no motor/sensory deficits Skin: normal pigmentation, warm/dry Tanya Moore DO Aug 03, 2018 15:23
--- NOTE | 2018-08-03 15:33 | Pre-Procedure Note/Attestation ---
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 Attestation I attest that I discussed the nature of the procedure; its benefits; risks and complications; and alternatives (and the risks and benefits of such alternatives ), prior to the procedure, with the patient (or the patient's legal sales and merchandising representative). I attest that, if there was a reasonable possibility of needing a blood transfusion, the patient (or the patient's legal sales and merchandising representative) was given the [facility] standardized written summary, pursuant to the Prashant Barrington Blood Safety Act ([place] Health and Safety Code # 1645, as amended). I attest that I re-evaluated the patient just prior to the surgery and that there has been no change in the patient's H&P, except as documented below: Kenan Fam MD Aug 03, 2018 15:33
--- NOTE | 2018-08-03 15:42 | Immediate Post-Op Evaluation ---
Immediate Post-Op Evalulation Immediate Post-Op Evalulation Procedure: ICD placement Date of Evaluation: Aug 03, 2018 Time of Evaluation: 13:41 IV Fluids: 200 Blood Products: 0 Estimated Blood Loss: min Urinary Output: 0 Blood Pressure Systolic: 124 Blood Pressure Diastolic: 93 Pulse Rate: 70 Respiratory Rate: 16 O2 Sat by Pulse Oximetry: 100 Temperature (Fahrenheit): 97 Pain Score (1-10): 0 Nausea: No Vomiting: No Complications 0 Patient Status: awake, reacts, patent, none Hydration Status: adequate Drug: Ancef 1g Given Within 1 Hr of Incision: Yes Time Given: 13:30 Tracy Weinberg MD Aug 03, 2018 15:42
--- NOTE | 2018-08-03 15:43 | Brief Operative Note ---
Immediate Post Operative Note Operative Note Pre-op Diagnosis: Severe cardiomyopathy with history of prior ICD removal due to infection. Procedure: Single chamber ICD implant on Right side. Complete occlusion of Left subclavian vein [id number] Post-op Diagnosis: same as pre-op Surgeon: carine burden Specimen: none Complications: none Fluids: 100 cc Estimated Blood Loss: minimal Implant(s) used?: Yes Kenan Burden MD Aug 03, 2018 15:43
[2018-08-03] MEDS ORDERED: fentaNYL 100 mcg/2 mL IV PRN (15:45)
[2018-08-03] MEDS ORDERED: DiphenhydrAMINE 50mg/ml Inj IVP PRN (15:45)
[2018-08-03] MEDS ORDERED: Morphine Sulfate 2mg/ml Inj IVP PRN (15:45)
[2018-08-03] MEDS ORDERED: Tylenol #3 tab (300mg/30mg) ORAL PRN (15:45)
--- NOTE | 2018-08-03 16:38 | Diagnostic Imaging Report ---
Indication: Status post pacemaker placement Technique: One view of the chest Comparison: 07/27/2018 Findings: Interim placement right subclavian unifocal AICD, lead tip at the expected region of the right ventricular apex. No gross pneumothorax. Median sternotomy sutures, epicardial pacemaker leads are again demonstrated. The heart is enlarged. The lungs and pleural spaces remain clear. Impression: Apparent satisfactory right chest AICD placement. No radiographically evident complication. Other stable findings as described, over 7 days
--- NOTE | 2018-08-03 16:40 | Diagnostic Imaging Report ---
INDICATION: Pain, intraoperative, venography during pacemaker insertion TECHNIQUE: Intraoperative imaging Fluoroscopy time: 424 seconds Total dose: 2.43 mGym2 Total number of images: 3 COMPARISON: None FINDINGS: Intraoperative venogram on the left demonstrates retrograde opacification via collaterals of the left axillary vein, occlusion of the subclavian and innominate veins. Intraoperative venogram on the right demonstrates patency of the right innominate vein IMPRESSION: Intraoperative imaging, as described
[2018-08-03] MEDS: Atorvastatin 20mg tab ORAL SCH (20:19)
[2018-08-03] MEDS: ceFAZolin sod 1 GM in D5W 55 ML IVP SCH (22:21)
[2018-08-04] VITALS: BP 117/64
--- NOTE | 2018-08-04 03:00 | Operative Note - Dictated ---
DATE OF OPERATION: 08/03/2018 NOTE: "POOR AUDIO QUALITY" SURGEON: Kenan Fam M.D. INDICATION FOR PROCEDURE: Severe cardiomyopathy with ejection fraction of only 15% in the patient with history of defibrillator implantation 7 years ago that was removed due to infection. The patient had initially refused ICD implantation in the past, however, on this admission, the patient agreed to proceed with the defibrillator implantation for primary prevention. PROCEDURE PERFORMED: 1. Single-chamber defibrillator implantation. 2. Right subclavian as well as left subclavian venography and interpretation. 3. ICD program during initial implant. OPERATIVE REPORT: The patient was brought into the operating room in fasting state and after informed consent was obtained, the patient was prepped and draped in usual fashion. Time-out was performed and conscious sedation was provided by the anesthesiologist after the patient received antibiotics within an hour of incision. After prep and drape and under sterile condition, a total of 20 mL of lidocaine was given to left prepectoralis area. An incision was made along the left deltopectoral groove. Sharp and blunt dissection was made to the level of the pectoralis fascia and the cephalic vein was isolated and cutdown was performed. The wire would not advance cephalic vein. During venography of the cephalic vein to the subclavian vein showed complete occlusion of the proximal subclavian vein with all veins going cephalad with numerous collaterals. cutdown was then abandoned. to very proximal subclavian vein that was unobtainable with Seldinger technique. We were unable to get access and the blood came back and venography even then showed complete occlusion even at that point. This procedure was then abandoned. The incision site and the access site was irrigated with antibiotic solution and this pocket was closed in three layers using 2-0 Vicryl and Dermabond. I came . The patient was re-prepped on the right side. The tray was moved to the right side and the fluoroscopy machine was moved to the other side. Time-out was performed again. A 20 mL lidocaine was given to the right prepectoralis area at this time. An incision was made along the right deltopectoral groove. Sharp and blunt dissection was made to the level of the pectoralis fascia. The cephalic vein was isolated and the cephalic vein cutdown was performed. The right ventricular lead was placed through this access and was placed in the right ventricular apex with excellent sensing parameters. atrial sensing electrode also that was placed in the atrium. The lead was then fixed to the underlying pectoralis fascia. A pocket was made close to the venous access and was irrigated with antibiotic solution. The lead was then connected to defibrillator and left in the pocket. The pocket was then closed in three layers using 2-0 Vicryl and Dermabond. In view of the patient's high risk for not coming out of ventricular fibrillation, defibrillation threshold was not performed for maximum output. FINDINGS: Defibrillator is from [employer], , serial number is [id number]. Right ventricular lead is from [employer], it is for MRI, [id number], serial number [id number]. The R-wave is 5.8 millivolts, threshold is 0.5 volts at 0.4 milliseconds, 711 ohms. The right atrial sensing was 1.8 millivolts. IMPRESSION: 1. Successful single-chamber right-sided ICD implantation with atrial sensing capability with [employer] MRI-safe device. 2. ICD was programmed to VVI with lower rate of 40 with ventricular tachycardia monitor zone only at rate of 150-180 and ventricular tachycardia at heart rate of 182 beats per minute with and ventricular fibrillation at heart rate of more than 202 beats per minute with eight shocks x4 and ATP during charging. 3. Complete occlusion of the left subclavian vein. 4. No immediate complications from the procedure. Kenan Fam M.D. DR: Nichol JOB#: [id number] CC:
[2018-08-04 04:00] VITALS: BP 116/77
[2018-08-04] MEDS: ceFAZolin sod 1 GM in D5W 55 ML IVP SCH ×2 (06:07→14:21)
[2018-08-04 07:58] VITALS: BP 141/86
[2018-08-04] MEDS: Carvedilol 6.25mg Tab ORAL SCH (08:41)
[2018-08-04] MEDS: Docusate 100mg cap ORAL SCH ×2 (08:41→18:00)
[2018-08-04] MEDS: HydrALAZINE 10mg Tab ORAL SCH (08:42)
[2018-08-04] MEDS: Spironolactone 25mg tab ORAL SCH (08:42)
[2018-08-04] MEDS: Heparin 5000 units/ml inj SUBQ SCH (08:43)
--- NOTE | 2018-08-04 09:42 | General Progress Note ---
Assessment/Plan Problem List: (1) Hx of CABG ICD Codes: Z95.1 - Presence of aortocoronary bypass graft SNOMED: 116269611, 672207872 (2) Renal insufficiency ICD Codes: N28.9 - Disorder of kidney and ureter, unspecified SNOMED: 566906935, 534483749 (3) GERD (gastroesophageal reflux disease) ICD Codes: K21.9 - Gastro-esophageal reflux disease without esophagitis SNOMED: 576891575 (4) Constipation ICD Codes: K59.00 - Constipation, unspecified SNOMED: 41283706 (5) CHF (congestive heart failure) ICD Codes: I50.9 - Heart failure, unspecified SNOMED: 60843970 (6) AICD lead displacement ICD Codes: T82.120A - Displacement of cardiac electrode, initial encounter SNOMED: 412733485 Assessment/Plan #AICD placement in setting of EF of 10% , POD # 1 cardiology to interrogate AICD today ensure to optimize medical management # Acute on chronic kidney disease- improved pt given lasix, will monitor renal function closely restart lisinopril # Hx of CABG, recent PCI at [facility] c/w medical management recommend ICD #constipation added bowel regimen #GERD protonix daily, famotidine PRN #Dispo home, after AICD interrogation by cardiology Subjective Date patient seen: Aug 04, 2018 Time patient seen: 09:00 Allergies: Coded Allergies: No Known Allergies (Unverified , 07/27/18) All Systems: reviewed and negative except above Subjective patient doing well, he denies pain at this time including site of surgery. Patient admits to constipation. Objective Last 24 Hour Vital Signs Date Time Temp Pulse Resp B/P (MAP) Pulse Ox O2 Delivery O2 Flow Rate FiO2 08/04/18 08:42 141/86 08/04/18 08:41 76 141/86 08/04/18 08:41 141/86 08/04/18 07:58 97.3 76 18 141/86 (104) 97 08/04/18 04:00 72 08/04/18 04:00 98.0 81 18 116/77 (90) 97 08/04/18 00:00 98.6 80 18 117/64 (81) 96 08/03/18 23:29 80 08/03/18 21:00 Room Air 08/03/18 20:19 85 127/80 10/24/18 20:18 127/80 08/03/18 20:18 127/80 08/03/18 20:00 Nasal Cannula 3.0 08/03/18 20:00 96 Nasal Cannula 3.0 08/03/18 20:00 98.2 84 19 127/80 (96) 99 08/03/18 19:00 72 08/03/18 17:06 78 08/03/18 17:00 64 17 132/88 96 Nasal Cannula 3 08/03/18 16:54 98.0 73 18 127/88 (101) 98 08/03/18 16:45 97.5 65 17 126/86 96 Nasal Cannula 3 08/03/18 16:30 63 18 124/84 96 Nasal Cannula 3 08/03/18 16:15 69 14 129/87 96 Nasal Cannula 3 08/03/18 16:00 64 17 132/88 96 Nasal Cannula 3 08/03/18 15:45 67 15 131/92 98 Nasal Cannula 3 08/03/18 15:42 70 16 100 08/03/18 15:36 97.0 70 16 124/93 100 Simple Mask 6 08/03/18 11:47 97.2 20 101/70 (80) 77 97.2 08/03/18 09:49 126/76 (93) 73 08/03/18 09:49 126/79 08/03/18 09:48 73 126/79 08/03/18 09:48 126/79 Intake and Output 08/03/18 08/04/18 18:59 06:59 Intake Total 650 ml 610 ml Output Total 800 ml 800 ml Balance -150 ml -190 ml Intake Oral 600 ml 500 ml IV Total 50 ml 110 ml Output Urine Total 800 ml 800 ml Height (Feet): 5 Height (Inches): 6.00 Weight (Pounds): 176 General Appearance: WD/WN, no apparent distress, alert EENT: PERRL/EOMI, normal ENT inspection, TMs normal Neck: non-tender, normal alignment, supple, normal inspection Cardiovascular: normal peripheral pulses, normal rate, regular rhythm, regularly irregular, no gallop/murmur, no JVD Respiratory/Chest: lungs clear, normal breath sounds, no respiratory distress, no accessory muscle use, other - Right surgical scar with new AICD, C/D/I no erythema or induration Abdomen: normal bowel sounds, non tender, soft, no organomegaly, no mass Extremities: normal range of motion, non-tender Edema: no edema noted Arm (L), no edema noted Arm (R), no edema noted Leg (L), no edema noted Leg (R), no edema noted Pedal (L), no edema noted Pedal (R), no edema noted Generalized Neurologic: laminator hand II-XII grossly normal, no motor/sensory deficits, oriented x 3 , responsive, normal mood/affect Skin: normal pigmentation, warm/dry Tanya Moore DO Aug 04, 2018 09:42
--- NOTE | 2018-08-04 11:02 | 48 Hour Post Anesthesia Eval ---
Post Anesthesia Evaluation Procedure: ICD placement Date of Evaluation: Aug 04, 2018 Time of Evaluation: 11:01 Blood Pressure Systolic: 146 0: 74 Pulse Rate: 72 Respiratory Rate: 20 Temperature (Fahrenheit): 97.5 O2 Sat by Pulse Oximetry: 98 Nausea: No Vomiting: No Pain Intensity: 2 Hydration Status: adequate Cardiopulmonary Status: stable Mental Status/LOC: patient returned to baseline Follow-up Care/Observations: n/a Post-Anesthesia Complications: none Follow-up care needed: ready to discharge Vikas Ferrer MD Aug 04, 2018 11:02
[2018-08-04 12:00] VITALS: BP 130/78
--- NOTE | 2018-08-04 12:33 | General Progress Note ---
Assessment/Plan Status: stable Assessment/Plan # Erythrocytosis potentially due to perfusion deficit and compensatory status --> r/o malignancy, have ordered for epo level - epo appears to be wnl --> TIBC 248, % sat 58, ferritin 87 --> otherwise, can consider sleep study if insomnia, any e/o rosario --> Hgb consistently at ~16-17 --> Improved # Coagulopathy - mild, consider liver dysfunction. --> US abd: No evidence for cholecystitis. Possible periportal hyperechogenicity. Minimal nodular surface contour to liver. Echogenic foci in the kidneys. --> recheck Pt/INR --> INR has normalized. # CHF exacerbation -- prn diuresis --> Cardiology is following. Appreciate recs. --> Echocardiogram showed ejection fraction of around 15% to 20%. Continue Lasix 40 mg IV daily, lisinopril 10 mg daily, and Aldactone 25 mg daily and Coreg --> > On beta mary # Hx of CABG with pci recently at [facility] --> ICD as needed # ALMAS on ckd --> lasix given, monitor closely # Nausea. Zofran prn. Appreciate consultation greatly! Subjective Date patient seen: Aug 04, 2018 ROS Limited/Unobtainable: Yes Allergies: Coded Allergies: No Known Allergies (Unverified , 07/27/18) Subjective Pt awake and alert. S/P AICD placement. Objective Last 24 Hour Vital Signs Date Time Temp Pulse Resp B/P (MAP) Pulse Ox O2 Delivery O2 Flow Rate FiO2 08/04/18 11:02 72 20 98 08/04/18 09:00 Room Air 08/04/18 08:42 141/86 08/04/18 08:41 76 141/86 08/04/18 08:41 141/86 08/04/18 08:00 74 08/04/18 07:58 97.3 76 18 141/86 (104) 97 08/04/18 04:00 72 08/04/18 04:00 98.0 81 18 116/77 (90) 97 08/04/18 00:00 98.6 80 18 117/64 (81) 96 08/03/18 23:29 80 08/03/18 21:00 Room Air 08/03/18 20:19 85 127/80 08/03/18 20:18 127/80 08/03/18 20:18 127/80 08/03/18 20:00 Nasal Cannula 3.0 08/03/18 20:00 96 Nasal Cannula 3.0 08/03/18 20:00 98.2 84 19 127/80 (96) 99 08/03/18 19:00 72 08/03/18 17:06 78 08/03/18 17:00 64 17 132/88 96 Nasal Cannula 3 08/03/18 16:54 98.0 73 18 127/88 (101) 98 08/03/18 16:45 97.5 65 17 126/86 96 Nasal Cannula 3 08/03/18 16:30 63 18 124/84 96 Nasal Cannula 3 08/03/18 16:15 69 14 129/87 96 Nasal Cannula 3 08/03/18 16:00 64 17 132/88 96 Nasal Cannula 3 08/03/18 15:45 67 15 131/92 98 Nasal Cannula 3 08/03/18 15:42 70 16 100 08/03/18 15:36 97.0 70 16 124/93 100 Simple Mask 6 Intake and Output 08/03/18 08/04/18 19:00 07:00 Intake Total 650 ml 610 ml Output Total 800 ml 800 ml Balance -150 ml -190 ml Intake Oral 600 ml 500 ml IV Total 50 ml 110 ml Output Urine Total 800 ml 800 ml Height (Feet): 5 Height (Inches): 6.00 Weight (Pounds): 176 General Appearance: no apparent distress EENT: PERRL/EOMI Neck: normal alignment Cardiovascular: normal peripheral pulses Respiratory/Chest: no respiratory distress Abdomen: soft Marcin Henry MD Aug 04, 2018 12:33
--- NOTE | 2018-08-04 13:27 | Discharge Instructions ---
Discharge Instructions Discharge Instructions Follow up with: cardiology and primary care doctor in 1-2 weeks Call MD/Return to Hospital if: severe pain, bleeding or chest pain Diet: cardiac 2 GM Na, low fat Resume Normal Activity?: No - no lifting over the arm on the right side for 4 weeks For Surgical Patients Contact your physician for: bleeding, pain, redness, swelling For Congestive Heart Failure Reminder Report to your physician any weight gain of 5 pounds or more in one week. Tanya Moore DO Aug 04, 2018 13:26
--- NOTE | 2018-08-04 15:20 | Cardiac Electrophysiology PN ---
Assessment/Plan Assessment/Plan 1. Exacerbation of CHF. EF 15% to 20%. Continue Lasix 20 daily, Lisinopril 10 mg daily, Aldactone 25 mg daily and Coreg 6.25 bid 2. Status post removal of the defibrillator 7 years ago due to infection. S/P Implantation of a new Single chamber Biotronic ICD on Right side as has total occlusion of left subclavian on 08/03/18 3. Bifascicular block, right bundle-branch block, and left anterior fascicular block. No syncope. 4. Renal failure with creatinine 2.4. 5. Nonsustained VT. Continue Coreg DW RN Subjective Subjective Comfortable in NAD.S/P single chamber Biotronic ICD implant yesterday. Objective Last 24 Hour Vital Signs Date Time Temp Pulse Resp B/P (MAP) Pulse Ox O2 Delivery O2 Flow Rate FiO2 08/04/18 12:00 97.1 78 18 130/78 (95) 98 08/04/18 11:02 72 20 98 08/04/18 09:00 Room Air 08/04/18 08:42 141/86 08/04/18 08:41 76 141/86 08/04/18 08:41 141/86 08/04/18 08:00 74 08/04/18 07:58 97.3 76 18 141/86 (104) 97 08/04/18 04:00 72 08/04/18 04:00 98.0 81 18 116/77 (90) 97 08/04/18 00:00 98.6 80 18 117/64 (81) 96 08/03/18 23:29 80 08/03/18 21:00 Room Air 08/03/18 20:19 85 127/80 08/03/18 20:18 127/80 08/03/18 20:18 127/80 08/03/18 20:00 Nasal Cannula 3.0 08/03/18 20:00 96 Nasal Cannula 3.0 08/03/18 20:00 98.2 84 19 127/80 (96) 99 08/03/18 19:00 72 08/03/18 17:06 78 08/03/18 17:00 64 17 132/88 96 Nasal Cannula 3 08/03/18 16:54 98.0 73 18 127/88 (101) 98 08/03/18 16:45 97.5 65 17 126/86 96 Nasal Cannula 3 08/03/18 16:30 63 18 124/84 96 Nasal Cannula 3 08/03/18 16:15 69 14 129/87 96 Nasal Cannula 3 08/03/18 16:00 64 17 132/88 96 Nasal Cannula 3 08/03/18 15:45 67 15 131/92 98 Nasal Cannula 3 08/03/18 15:42 70 16 100 08/03/18 15:36 97.0 70 16 124/93 100 Simple Mask 6 Intake and Output 08/03/18 08/04/18 19:00 07:00 Intake Total 650 ml 610 ml Output Total 800 ml 800 ml Balance -150 ml -190 ml Intake Oral 600 ml 500 ml IV Total 50 ml 110 ml Output Urine Total 800 ml 800 ml Objective HEAD AND NECK: Positive JVD. LUNGS: Coarse rhonchi. CARDIOVASCULAR: Shows regular S1 and S2 with no gallop or murmur. Sternotomy scar is intact. New implant on Right side present. Incision on Left without ICD healing ABDOMEN: Soft. EXTREMITIES: No pitting edema. Kenan aFm MD Aug 04, 2018 15:20
[2018-08-04 16:00] VITALS: BP 117/75
[2018-08-06] MEDS ORDERED: UNOBMED (11:09)
--- NOTE | 2018-08-07 19:40 | Consultation ---
Consult Note Consult Note HEMATOLOGY-ONCOLOGY CONSULTATION REFERRING PHYSICIAN: Asia Weber MD DOS: 08/07/2018 REASON FOR CONSULTATION: Thrombocytopenia, lymphopenia Present Illness HPI 67 year old man with history CAD s/p CABG, chronic systolic CHF, s/p AICD placement on recent admission here, CKD III, presents with general weakness and dizziness since this morning after taking his medications today. He denies any chest pain, palpitations, syncope, falls or focal weakness. In ED he was noted to be hypotensive with SBP in 70s, treated with IV saline with improvement in his dizziness and increased in SBP to low 100s. He was referred for admission for further evaluation. Hematology services consulted for evaluation of thrombocytopenia and lymphopenia. Pt is known to me and last seen 2 weeks ago. Medication History Scheduled Aspirin* (Aspir 81*), 81 MG ORAL DAILY Atorvastatin Calcium* (Lipitor*), 40 MG ORAL BEDTIME Carvedilol (Coreg), 3.125 MG ORAL EVERY 12 HOURS Docusate Sodium (Dok), 200 MG ORAL TWICE A DAY Furosemide* (Lasix*), 20 MG ORAL DAILY Hydralazine HCl (Hydralazine HCl), 10 MG ORAL Q12HR Isosorbide Dinitrate* (Isordil*), 10 MG ORAL Q12HR Lisinopril* (Lisinopril*), 10 MG ORAL DAILY Spironolactone (Aldactone), 25 MG ORAL DAILY Scheduled PRN Hydrocodone/Acetaminophen 5-325* (Hydrocodone/Acetaminophen 5-325*), 1 TAB ORAL Q4H PRN for For Pain, (Reported) Ondansetron (Zofran), 4 MG ORAL Q6H PRN for Nausea & Vomiting, (Reported) Miscellaneous Medications Unable to Obtain Medications (Unable To Obtain Meds), (Reported) Discontinued Medications Furosemide* (Lasix*), 40 MG ORAL DAILY, (Reported) Discontinued Reason: Medication dose changed Lisinopril (Lisinopril*), 10 MG ORAL DAILY, (Reported) Discontinued Reason: Medication dose changed Spironolactone* (Aldactone*), 25 MG ORAL DAILY, (Reported) Discontinued Reason: Medication dose changed Patient History History Provided By: Patient Healthcare decision maker Resuscitation status Advanced Directive on File Family History Family History: Patient reports no known family medical history. Social History Social History: (1) Denies tobacco se Review of Systems Constitutional: Denies: chills, sweats, fever Eye: Denies: eye pain, blurred vision ENT: Denies: ear pain, ear discharge, nose pain Respiratory: Denies: cough, orthopnea, shortness of breath Cardiovascular: Denies: chest pain, edema, palpitations Gastrointestinal: Denies: abdominal pain, constipation, diarrhea Genitourinary: Denies: discharge, dysuria Musculoskeletal: Denies: back pain, joint pain Skin: Denies: rash, change in color Neurological: Reports: dizziness; Denies: headache, numbness, paresthesia Endocrine: Denies: excessive sweating Hematologic/Lymphatic: Denies: easy bleeding Physical Exam General Appearance: no apparent distress, alert HEENT: atraumatic, anicteric, mucous membranes moist Neck: normal alignment, supple, normal inspection Respiratory/Chest: chest wall non-tender, lungs clear, normal breath sounds, no respiratory distress, no accessory muscle use Cardiovascular/Chest: normal peripheral pulses, normal rate, regular rhythm Abdomen: normal bowel sounds, non tender, soft Extremities: normal range of motion, non-tender Skin Exam: normal pigmentation, warm/dry Neurologic: blogs manager II-XII grossly normal, no motor/sensory deficits, alert, oriented x 3, normal mood/affect LABS: Have been reviewed. Height (Feet): 5 Height (Inches): 8.00 Weight (Pounds): 180 Medications Current Medications Medications (Trade) Dose Ordered Sig/Kavitha Route PRN Reason Start Time Stop Time Status Last Admin Dose Admin Aspirin (Ecotrin) 81 mg DAILY ORAL 08/07/18 09:00 09/06/18 08:59 UNV Atorvastatin Calcium (Lipitor) 40 mg BEDTIME ORAL 08/06/18 21:00 09/05/18 20:59 UNV Dextrose (Dextrose 50%) 25 ml Q30M PRN IV Hypoglycemia 08/06/18 14:45 09/05/18 14:44 UNV Dextrose (Dextrose 50%) 50 ml Q30M PRN IV Hypoglycemia 08/06/18 14:45 09/05/18 14:44 UNV Docusate Sodium (Colace) 200 mg TWICE A DAY ORAL 08/06/18 18:00 09/05/18 17:59 UNV Sodium Chloride 1,000 ml @ 300 mls/hr Q3H20M IV 08/06/18 11:30 09/05/18 11:29 08/06/18 11:58 ASSESSMENT AND RECOMMENDATIONS # Thrombocytopenia. Potential causes multifactorial, evaluate for lover and viral etiologies to begin. --> Have ordered for Hep panel and HIV --> Ordered US abd to evaluate for cirrhosis and hsm --> Peripheral smear ordered to evaluate for blasts --> Abx and other meds have been reviewed. # Lymphopenia. Multiple etiologies possible including common which are medications-induced, infection vs viral syndrome --> Hep and HIV ordered --> US abd ordered. # Hypotension and dizziness, Suspected to be due to ALMAS superimposed on CKD III from medications including diuretics, symptoms and hypotension improved with IV saline given in ED. Admit observation, telemetry unit. Hold all diuretics, ACEI and other anti-hypertensives. Check orthostatics and continue to monitor blood pressure closely. # Erythrocytosis potentially due to perfusion deficit and compensatory stat --> Has resolved --> r/o malignancy, have ordered for epo level --> in addition, iron levels/saturation ordered as well --> otherwise, can consider sleep study if insomnia, any e/o rosario # Coagulopathy - mild, consider liver dysfunction --> ultrasound of the abd has been ordered # CHF exacerbation -- prn diuresis --> seen by cardiology service # Hx of CABG with pci recently at [facility] --> ICD as needed # ALMAS on ckd --> lasix given, monitor closely # Nausea - will c/w Zofran Time note entered does note reflect time patient was seen and evaluated. GREATLY APPRECIATE CONSULTATION. : Marcin Henry MD Aug 07, 2018 19:40
== END 2018-08-04 19:06 | disposition home or self-care (01) | DRG 176 ==
LOC: EDBD 09:51 → EMR 10:34 → 2E 10:38 → EDBEDREQ 11:40
DX: I13.0 Hypertensive heart and chronic kidney disease with heart failure and stage 1 through stage 4 chronic kidney disease, or unspecified chronic kidney disease (principal); N17.9 Acute kidney failure, unspecified; D69.6 Thrombocytopenia, unspecified; D68.9 Coagulation defect, unspecified; I95.9 Hypotension, unspecified; N18.3 Chronic kidney disease, stage 3 (moderate); I42.9 Cardiomyopathy, unspecified; I50.23 Acute on chronic systolic (congestive) heart failure; D75.1 Secondary polycythemia; R11.0 Nausea; D72.810 Lymphocytopenia; I25.10 Atherosclerotic heart disease of native coronary artery without angina pectoris; Z95.1 Presence of aortocoronary bypass graft; I45.2 Bifascicular block; I47.1 Supraventricular tachycardia; K59.00 Constipation, unspecified; K21.9 Gastro-esophageal reflux disease without esophagitis
CPT/HCPCS: 36415; 70450; 71045; 76700; 80048; 80053; 81003; 82550; 82553; 82668; 82728; 83540; 83550; 83880; 84484; 85025; 85610; 90686; 93005; 93306; 94760; 96374; 96375; 99285; J2405

== ENCOUNTER 2018-08-06 11:10 | Observation (INO) | payer MEDICAID ==
[~2018-08-06] VITALS: Ht 165.1 cm; Wt 80.7 kg
[~2018-08-06 11:10] MED LIST: ALDACTONE25 MG ORAL; APRESOLINE10 MG ORAL; ASPIR 8181 MG ORAL; COREG3.125 MG ORAL; DOK100 M1 ORAL; FUROSEMIDE20 M1 ORAL; FUROSEMIDE40 MG ORAL; ISOSORBIDE DINI10 MG ORAL; LIPITOR20 MG ORAL; LISINOPRIL10 MG ORAL; LISINOPRIL20 MG ORAL; SPIRONOLACTONE25 MG ORAL; UNOBMED
[2018-08-06 11:43] VITALS: BP 80/56
[2018-08-06 12:07] LABS: INR 1.1 (0.9-1.1)
[2018-08-06 12:10] LABS: BASOPHILS % (AUTO) 0.5 % (0.0-2.0); HEMATOCRIT 41.5 % (42.0-52.0); HEMOGLOBIN 14.3 G/DL (14.2-18.0); LYMPHOCYTES % (AUTO) 11.4 % (20.0-45.0); MEAN CORPUSCULAR VOLUME 93 FL (80-99); NEUTROPHILS % (AUTO) 80.2 % (45.0-75.0); PLATELET COUNT 160 K/UL (150-450); RED BLOOD COUNT 4.45 M/UL (4.70-6.10); RED CELL DISTRIBUTION WIDTH 11.7 % (11.6-14.8); WHITE BLOOD COUNT 10.7 K/UL (4.8-10.8)
[2018-08-06 12:11] LABS: ANION GAP 10 mmol/L (5-15); BLOOD UREA NITROGEN 53 mg/dL (7-18); CALCIUM 8.1 MG/DL (8.5-10.1); CARBON DIOXIDE 24 MMOL/L (21-32); CHLORIDE 102 MMOL/L (98-107); SODIUM 136 MMOL/L (136-145)
[2018-08-06 12:23] LABS: ALANINE AMINOTRANSFERASE 22 U/L (12-78); ALBUMIN 2.9 G/DL (3.4-5.0); ALBUMIN/GLOBULIN RATIO 0.7 (1.0-2.7); ALKALINE PHOSPHATASE 91 U/L (46-116); ASPARTATE AMINO TRANSFERASE 28 U/L (15-37); BILIRUBIN,TOTAL 0.4 MG/DL (0.2-1.0); CREATINE KINASE 192 U/L (26-308)
--- NOTE | 2018-08-06 12:39 | Diagnostic Imaging Report ---
EXAM: XR Chest, 1 View CLINICAL HISTORY: WEAK TECHNIQUE: Frontal view of the chest. COMPARISON: Chest x-ray dated 08/03/18 FINDINGS: Lungs: Unremarkable. The lungs appear clear. No confluent pulmonary opacities. Pleural space: Unremarkable. The costophrenic angles are sharp. No visible pneumothorax. Heart: Cardiac silhouette appears enlarged, however this is magnified by portable technique. Mediastinum: Unremarkable. Bones/joints: Patient is status post median sternotomy. Tubes, lines and devices: Stable positioning of a pacer/ICD in the right chest wall with lead tip in the right ventricle region. Stable positioning of epicardial pacemaker leads. IMPRESSION: No acute findings.
[2018-08-06 12:46] VITALS: BP 104/57
[2018-08-06] MEDS ORDERED: HYDROCODON-ACE1 EA15 ORAL (13:02)
[2018-08-06] MEDS ORDERED: ZOFRAN4 M1 ORAL (13:02)
--- NOTE | 2018-08-06 13:24 | Emergency Room Report ---
History of Present Illness General Chief Complaint: Dizziness Source: Patient, EMS Present Illness HPI Patient was brought in by EMS for weakness and dizziness. He was hypotensive in the field. He was recently discharged from the hospital. He was admitted for congestive heart failure and had bilateral pacemaker implantable defibrillators inserted at that time. He's taking multiple medications including water pills and medication for his blood pressure. He feels like he is going to pass out when he sits or stands. No fever, chills, NVD, dysuria, headache, calf pain. The wounds have minimal pain and there is no drainage. No other rashes. He was discharged 08/04 in the evening. He was hypotensive twice on that morning. Allergies: Coded Allergies: No Known Allergies (Unverified , 07/27/18) Patient History Past Medical History: see triage record, old chart reviewed Past Surgical History: CABG, pacemaker - AICD Social History: Denies: smoking Social History Narrative lives in a long term on [employer] Reviewed Nursing Documentation: PMH: Agreed; PSxH: Agreed Nursing Documentation-PMH Past Medical History: No History, Except For Hx Cardiac Problems: Yes - heart attack 2017, heart surgery Hx Hypertension: Yes Hx Pacemaker: Yes Hx Asthma: Yes Hx Cancer: No Hx Gastrointestinal Problems: No Hx Neurological Problems: No Review of Systems All Other Systems: negative except mentioned in HPI Physical Exam Vital Signs Date Time Temp Pulse Resp B/P (MAP) Pulse Ox O2 Delivery O2 Flow Rate FiO2 08/06/18 11:04 97.5 81 18 89/58 98 Room Air Supine blood pressure Sp02 EP Interpretation: reviewed, normal General Appearance: well appearing, no apparent distress, GCS 15 Head: normocephalic, atraumatic Eyes: bilateral eye normal inspection ENT: moist mucus membranes Neck: supple Respiratory: lungs clear, normal breath sounds, other - bilat pacers Cardiovascular #1: regular rate, rhythm, other - heave Cardiovascular #2: 2+ radial (R) Gastrointestinal: normal inspection, normal bowel sounds, non tender, no mass, non-distended Musculoskeletal: back normal, normal range of motion, no calf tenderness Neurologic: alert, oriented x3, grossly normal Psychiatric: mood/affect normal Skin: normal inspection, warm/dry, wd healing/no infection noted Medical Decision Making Diagnostic Impression: Primary Impression: Hypotension (arterial) Qualified Codes: I95.89 - Other hypotension Additional Impressions: Cardiac LV ejection fraction 10-20% Acute on chronic renal failure Qualified Codes: N17.9 - Acute kidney failure, unspecified; N18.3 - Chronic kidney disease, stage 3 (moderate) Elevated TSH ER Course Patient presents with hypotension and dizziness and h/o cardiomyopathy. DDX: over diuresis, over medication, AMI, electrolyte imbalance, hypothyroid, bleeding amongst others. Evaluation with EKG, CXR, labs. Treatment with judicious hydration (as h/o CHF). secured entrance monitor. EKG with RBBB, no injury. CBC. CXR with inc cor, CABG, pacers, no CHF. CBC normal. CMP with evidence of ARF (was better on D/C). UA clear. Troponin upper limit of normal. TSH high. Patient pressure better with fluids. Still needs observation. Repeat trop and renal function. Consider eval for thyroid replacement. Contact Dr. Salas for admission. He came to ED to evaluate the patient. Admit telemetry. Laboratory Tests Test 08/06/18 11:25 08/06/18 13:15 White Blood Count 10.7 K/UL (4.8-10.8) Red Blood Count 4.45 M/UL (4.70-6.10) L Hemoglobin 14.3 G/DL (14.2-18.0) Hematocrit 41.5 % (42.0-52.0) L Mean Corpuscular Volume 93 FL (80-99) Mean Corpuscular Hemoglobin 32.1 PG (27.0-31.0) H Mean Corpuscular Hemoglobin Concent 34.4 G/DL (32.0-36.0) Red Cell Distribution Width 11.7 % (11.6-14.8) Platelet Count 160 K/UL (150-450) Mean Platelet Volume 8.2 FL (6.5-10.1) Neutrophils (%) (Auto) 80.2 % (45.0-75.0) H Lymphocytes (%) (Auto) 11.4 % (20.0-45.0) L Monocytes (%) (Auto) 7.0 % (1.0-10.0) Eosinophils (%) (Auto) 1.0 % (0.0-3.0) Basophils (%) (Auto) 0.5 % (0.0-2.0) Prothrombin Time 11.9 SEC (9.30-11.50) H Prothrombin Time INR 1.1 (0.9-1.1) PTT 28 SEC (23-33) Sodium Level 136 MMOL/L (136-145) Potassium Level 4.0 MMOL/L (3.5-5.1) Chloride Level 102 MMOL/L (98-107) Carbon Dioxide Level 24 MMOL/L (21-32) Anion Gap 10 mmol/L (5-15) Blood Urea Nitrogen 53 mg/dL (7-18) H Creatinine 2.0 MG/DL (0.55-1.30) H Estimate Glomerular Filtration Rate 33.4 mL/min (>60) Glucose Level 117 MG/DL (74-106) H Lactic Acid Level 1.10 mmol/L (0.4-2.0) Calcium Level 8.1 MG/DL (8.5-10.1) L Magnesium Level 1.7 MG/DL (1.8-2.4) L Total Bilirubin 0.4 MG/DL (0.2-1.0) Aspartate Amino Transferase (AST) 28 U/L (15-37) Alanine Aminotransferase (ALT) 22 U/L (12-78) Alkaline Phosphatase 91 U/L (46-116) Total Creatine Kinase 192 U/L (26-308) Troponin I 0.049 ng/mL (0.000-0.056) Pro-B-Type Natriuretic Peptide 2070 pg/mL (0-125) H Total Protein 6.9 G/DL (6.4-8.2) Albumin 2.9 G/DL (3.4-5.0) L Globulin 4.0 g/dL Albumin/Globulin Ratio 0.7 (1.0-2.7) L Thyroid Stimulating Hormone (TSH) 11.466 uiU/mL (0.358-3.740) Urine Color Pale yellow Urine Appearance Clear Urine pH 6 (4.5-8.0) Urine Specific [place] 1.010 (1.005-1.035) Urine Protein Negative (NEGATIVE) Urine Glucose (UA) Negative (NEGATIVE) Urine Ketones Negative (NEGATIVE) Urine Blood Negative (NEGATIVE) Urine Nitrite Negative (NEGATIVE) Urine Bilirubin Negative (NEGATIVE) Urine Urobilinogen Normal MG/DL (0.0-1.0) Urine Leukocyte Esterase Negative (NEGATIVE) Urine Opiates Screen Pending Urine Barbiturates Screen Pending Phencyclidine (PCP) Screen Pending Urine Amphetamines Screen Pending Urine Benzodiazepines Screen Pending Urine Cocaine Screen Pending Urine Marijuana (THC) Screen Pending EKG Diagnostic Results Rate: normal Rhythm: NSR ST Segments: no acute changes - LAE LBBB Rhythm Strip Diag. Results EP Interpretation: yes Rhythm: NSR, no PVC's, no ectopy Chest X-Ray Diagnostic Results Chest X-Ray Diagnostic Results : Chest X-Ray Ordered: Yes # of Views/Limited/Complete: 1 View Indication: Other EP Interpretation: Yes Interpretation: no consolidation, no effusion, no pneumothorax, other - pacer Impression: Other Electronically Signed by: Delonte Brown MD Last Vital Signs Date Time Temp Pulse Resp B/P (MAP) Pulse Ox O2 Delivery O2 Flow Rate FiO2 08/06/18 16:36 66 08/06/18 16:05 97.7 18 116/73 (87) 98 08/06/18 16:05 Room Air Status: improved Disposition: PLACE IN OBSERVATION Condition: Serious Referrals: NOT CHOSEN IPA/,REFERRING (PCP) Delonte Brown MD Aug 06, 2018 13:24
[2018-08-06 13:57] LABS: APPEARANCE,URINE CLEAR; BILIRUBIN, URINE NEGATIVE (NEGATIVE); COLOR,URINE PALE YELLOW; GLUCOSE, URINE (UA) NEGATIVE (NEGATIVE); KETONES,URINE NEGATIVE (NEGATIVE); LEUKOCYTE ESTERASE ,URINE NEGATIVE (NEGATIVE); NITRITE,URINE NEGATIVE (NEGATIVE); PH,URINE 6 (4.5-8.0); PROTEIN,URINE NEGATIVE (NEGATIVE); UROBILINOGEN,URINE NORMAL MG/DL (0.0-1.0)
--- NOTE | 2018-08-06 14:41 | History and Physical ---
History of Present Illness General Date patient seen: Aug 06, 2018 Time patient seen: 14:40 Reason for Hospitalization: Dizziness Present Illness HPI 67 year old man with history CAD s/p CABG, chronic systolic CHF, s/p AICD placement on recent admission here, CKD III, who presents with general weakness and dizziness since this morning after taking his medications today. He denies any chest pain, palpitations, syncope, falls or focal weakness. In ED he was noted to be hypotensive with SBP in 70s, treated with IV saline with improvement in his dizziness and increased in SBP to low 100s. He was referred for admission for further evaluation Allergies: Coded Allergies: No Known Allergies (Unverified , 07/27/18) Medication History Scheduled Aspirin* (Aspir 81*), 81 MG ORAL DAILY Atorvastatin Calcium* (Lipitor*), 40 MG ORAL BEDTIME Carvedilol (Coreg), 3.125 MG ORAL EVERY 12 HOURS Docusate Sodium (Dok), 200 MG ORAL TWICE A DAY Furosemide* (Lasix*), 20 MG ORAL DAILY Hydralazine HCl (Hydralazine HCl), 10 MG ORAL Q12HR Isosorbide Dinitrate* (Isordil*), 10 MG ORAL Q12HR Lisinopril* (Lisinopril*), 10 MG ORAL DAILY Spironolactone (Aldactone), 25 MG ORAL DAILY Scheduled PRN Hydrocodone/Acetaminophen 5-325* (Hydrocodone/Acetaminophen 5-325*), 1 TAB ORAL Q4H PRN for For Pain, (Reported) Ondansetron (Zofran), 4 MG ORAL Q6H PRN for Nausea & Vomiting, (Reported) Miscellaneous Medications Unable to Obtain Medications (Unable To Obtain Meds), (Reported) Discontinued Medications Furosemide* (Lasix*), 40 MG ORAL DAILY, (Reported) Discontinued Reason: Medication dose changed Lisinopril (Lisinopril*), 10 MG ORAL DAILY, (Reported) Discontinued Reason: Medication dose changed Spironolactone* (Aldactone*), 25 MG ORAL DAILY, (Reported) Discontinued Reason: Medication dose changed Patient History History Provided By: Patient Healthcare decision maker Resuscitation status Advanced Directive on File Family History Family History: Patient reports no known family medical history. Social History Social History: (1) Denies tobacco se Review of Systems Constitutional: Denies: chills, sweats, fever Eye: Denies: eye pain, blurred vision ENT: Denies: ear pain, ear discharge, nose pain Respiratory: Denies: cough, orthopnea, shortness of breath Cardiovascular: Denies: chest pain, edema, palpitations Gastrointestinal: Denies: abdominal pain, constipation, diarrhea Genitourinary: Denies: discharge, dysuria Musculoskeletal: Denies: back pain, joint pain Skin: Denies: rash, change in color Neurological: Reports: dizziness; Denies: headache, numbness, paresthesia Endocrine: Denies: excessive sweating Hematologic/Lymphatic: Denies: easy bleeding Physical Exam General Appearance: no apparent distress, alert HEENT: atraumatic, anicteric, mucous membranes moist Neck: normal alignment, supple, normal inspection Respiratory/Chest: chest wall non-tender, lungs clear, normal breath sounds, no respiratory distress, no accessory muscle use Cardiovascular/Chest: normal peripheral pulses, normal rate, regular rhythm Abdomen: normal bowel sounds, non tender, soft Extremities: normal range of motion, non-tender Skin Exam: normal pigmentation, warm/dry Neurologic: oracle drm consultant II-XII grossly normal, no motor/sensory deficits, alert, oriented x 3, normal mood/affect Last 24 Hour Vital Signs Date Time Temp Pulse Resp B/P (MAP) Pulse Ox O2 Delivery O2 Flow Rate FiO2 08/06/18 12:46 97.5 71 18 104/57 98 Room Air 08/06/18 11:43 97.5 76 18 80/56 98 Room Air 08/06/18 11:04 97.5 81 18 89/58 98 Room Air Laboratory Tests Test 08/06/18 11:25 08/06/18 13:15 White Blood Count 10.7 K/UL (4.8-10.8) Red Blood Count 4.45 M/UL (4.70-6.10) L Hemoglobin 14.3 G/DL (14.2-18.0) Hematocrit 41.5 % (42.0-52.0) L Mean Corpuscular Volume 93 FL (80-99) Mean Corpuscular Hemoglobin 32.1 PG (27.0-31.0) H Mean Corpuscular Hemoglobin Concent 34.4 G/DL (32.0-36.0) Red Cell Distribution Width 11.7 % (11.6-14.8) Platelet Count 160 K/UL (150-450) Mean Platelet Volume 8.2 FL (6.5-10.1) Neutrophils (%) (Auto) 80.2 % (45.0-75.0) H Lymphocytes (%) (Auto) 11.4 % (20.0-45.0) L Monocytes (%) (Auto) 7.0 % (1.0-10.0) Eosinophils (%) (Auto) 1.0 % (0.0-3.0) Basophils (%) (Auto) 0.5 % (0.0-2.0) Prothrombin Time 11.9 SEC (9.30-11.50) H Prothromb Time International Ratio 1.1 (0.9-1.1) Activated Partial Thromboplast Time 28 SEC (23-33) Sodium Level 136 MMOL/L (136-145) Potassium Level 4.0 MMOL/L (3.5-5.1) Chloride Level 102 MMOL/L (98-107) Carbon Dioxide Level 24 MMOL/L (21-32) Anion Gap 10 mmol/L (5-15) Blood Urea Nitrogen 53 mg/dL (7-18) H Creatinine 2.0 MG/DL (0.55-1.30) H Estimat Glomerular Filtration Rate 33.4 mL/min (>60) Glucose Level 117 MG/DL (74-106) H Lactic Acid Level 1.10 mmol/L (0.4-2.0) Calcium Level 8.1 MG/DL (8.5-10.1) L Magnesium Level 1.7 MG/DL (1.8-2.4) L Total Bilirubin 0.4 MG/DL (0.2-1.0) Aspartate Amino Transf (AST/SGOT) 28 U/L (15-37) Alanine Aminotransferase (ALT/SGPT) 22 U/L (12-78) Alkaline Phosphatase 91 U/L (46-116) Total Creatine Kinase 192 U/L (26-308) Troponin I 0.049 ng/mL (0.000-0.056) Pro-B-Type Natriuretic Peptide 2070 pg/mL (0-125) H Total Protein 6.9 G/DL (6.4-8.2) Albumin 2.9 G/DL (3.4-5.0) L Globulin 4.0 g/dL Albumin/Globulin Ratio 0.7 (1.0-2.7) L Thyroid Stimulating Hormone (TSH) 11.466 uiU/mL (0.358-3.740) Urine Color Pale yellow Urine Appearance Clear Urine pH 6 (4.5-8.0) Urine Specific [place] 1.010 (1.005-1.035) Urine Protein Negative (NEGATIVE) Urine Glucose (UA) Negative (NEGATIVE) Urine Ketones Negative (NEGATIVE) Urine Blood Negative (NEGATIVE) Urine Nitrite Negative (NEGATIVE) Urine Bilirubin Negative (NEGATIVE) Urine Urobilinogen Normal MG/DL (0.0-1.0) Urine Leukocyte Esterase Negative (NEGATIVE) Urine Opiates Screen Negative (NEGATIVE) Urine Barbiturates Screen Negative (NEGATIVE) Phencyclidine (PCP) Screen Negative (NEGATIVE) Urine Amphetamines Screen Negative (NEGATIVE) Urine Benzodiazepines Screen Negative (NEGATIVE) Urine Cocaine Screen Negative (NEGATIVE) Urine Marijuana (THC) Screen Negative (NEGATIVE) Height (Feet): 5 Height (Inches): 8.00 Weight (Pounds): 180 Medications Current Medications Medications (Trade) Dose Ordered Sig/Kavitha Route PRN Reason Start Time Stop Time Status Last Admin Dose Admin Aspirin (Ecotrin) 81 mg DAILY ORAL 08/07/18 09:00 09/06/18 08:59 UNV Atorvastatin Calcium (Lipitor) 40 mg BEDTIME ORAL 08/06/18 21:00 09/05/18 20:59 UNV Dextrose (Dextrose 50%) 25 ml Q30M PRN IV Hypoglycemia 08/06/18 14:45 09/05/18 14:44 UNV Dextrose (Dextrose 50%) 50 ml Q30M PRN IV Hypoglycemia 08/06/18 14:45 09/05/18 14:44 UNV Docusate Sodium (Colace) 200 mg TWICE A DAY ORAL 08/06/18 18:00 09/05/18 17:59 UNV Sodium Chloride 1,000 ml @ 300 mls/hr Q3H20M IV 08/06/18 11:30 09/05/18 11:29 08/06/18 11:58 Assessment/Plan Status: hypovolemia Assessment/Plan Hypotension and dizziness, suspected to be due to ALMAS superimposed on CKD III from medications including diuretics, symptoms and hypotension improved with IV saline given in ED. Admit observation, telemetry unit. Hold all diuretics, ACEI and other anti-hypertensives. Check orthostatics and continue to monitor blood pressure closely. Check BMP in AM. Spoke with Dr. Fam who will see the patient. history of CAD, chronic systolic CHF, continue with ASA and Lipitor. Currently not in acute CHF although will need to monitor respiratory status closely for evidence of fluid overload. VTE PPx heparin SC Full Code Perry Hanson MD Aug 06, 2018 14:41
[2018-08-06 15:03] VITALS: BP 117/70
--- NOTE | 2018-08-06 15:48 | Cardiac Electrophysiology PN ---
Assessment/Plan Assessment/Plan 1. Exacerbation of CHF. EF 15% to 20%. Hold Lasix 20 daily, Lisinopril 10 mg daily, Aldactone 25 mg daily and continue Coreg 6.25 bid 2. Status post removal of the defibrillator 7 years ago due to infection. S/P Implantation of a new Single chamber [employer] ICD on Right side as has total occlusion of left subclavian on 08/03/18 3. Bifascicular block, right bundle-branch block, and left anterior fascicular block. No syncope. 4. Renal failure with creatinine 2.4.DC ACEI and aldactone. start Hydralazine and isordil when BP better 5. Nonsustained VT. Continue Coreg Subjective Subjective Readmitted with Hypotension and worsening of renal failure Objective Last 24 Hour Vital Signs Date Time Temp Pulse Resp B/P (MAP) Pulse Ox O2 Delivery O2 Flow Rate FiO2 08/06/18 15:03 97.5 71 18 117/70 100 Room Air 08/06/18 12:46 97.5 71 18 104/57 98 Room Air 08/06/18 11:43 97.5 76 18 80/56 98 Room Air 08/06/18 11:04 97.5 81 18 89/58 98 Room Air Laboratory Tests Test 08/06/18 11:25 08/06/18 13:15 White Blood Count 10.7 K/UL (4.8-10.8) Red Blood Count 4.45 M/UL (4.70-6.10) L Hemoglobin 14.3 G/DL (14.2-18.0) Hematocrit 41.5 % (42.0-52.0) L Mean Corpuscular Volume 93 FL (80-99) Mean Corpuscular Hemoglobin 32.1 PG (27.0-31.0) H Mean Corpuscular Hemoglobin Concent 34.4 G/DL (32.0-36.0) Red Cell Distribution Width 11.7 % (11.6-14.8) Platelet Count 160 K/UL (150-450) Mean Platelet Volume 8.2 FL (6.5-10.1) Neutrophils (%) (Auto) 80.2 % (45.0-75.0) H Lymphocytes (%) (Auto) 11.4 % (20.0-45.0) L Monocytes (%) (Auto) 7.0 % (1.0-10.0) Eosinophils (%) (Auto) 1.0 % (0.0-3.0) Basophils (%) (Auto) 0.5 % (0.0-2.0) Prothrombin Time 11.9 SEC (9.30-11.50) H Prothromb Time International Ratio 1.1 (0.9-1.1) Activated Partial Thromboplast Time 28 SEC (23-33) Sodium Level 136 MMOL/L (136-145) Potassium Level 4.0 MMOL/L (3.5-5.1) Chloride Level 102 MMOL/L (98-107) Carbon Dioxide Level 24 MMOL/L (21-32) Anion Gap 10 mmol/L (5-15) Blood Urea Nitrogen 53 mg/dL (7-18) H Creatinine 2.0 MG/DL (0.55-1.30) H Estimat Glomerular Filtration Rate 33.4 mL/min (>60) Glucose Level 117 MG/DL (74-106) H Lactic Acid Level 1.10 mmol/L (0.4-2.0) Calcium Level 8.1 MG/DL (8.5-10.1) L Magnesium Level 1.7 MG/DL (1.8-2.4) L Total Bilirubin 0.4 MG/DL (0.2-1.0) Aspartate Amino Transf (AST/SGOT) 28 U/L (15-37) Alanine Aminotransferase (ALT/SGPT) 22 U/L (12-78) Alkaline Phosphatase 91 U/L (46-116) Total Creatine Kinase 192 U/L (26-308) Troponin I 0.049 ng/mL (0.000-0.056) Pro-B-Type Natriuretic Peptide 2070 pg/mL (0-125) H Total Protein 6.9 G/DL (6.4-8.2) Albumin 2.9 G/DL (3.4-5.0) L Globulin 4.0 g/dL Albumin/Globulin Ratio 0.7 (1.0-2.7) L Thyroid Stimulating Hormone (TSH) 11.466 uiU/mL (0.358-3.740) Urine Color Pale yellow Urine Appearance Clear Urine pH 6 (4.5-8.0) Urine Specific [place] 1.010 (1.005-1.035) Urine Protein Negative (NEGATIVE) Urine Glucose (UA) Negative (NEGATIVE) Urine Ketones Negative (NEGATIVE) Urine Blood Negative (NEGATIVE) Urine Nitrite Negative (NEGATIVE) Urine Bilirubin Negative (NEGATIVE) Urine Urobilinogen Normal MG/DL (0.0-1.0) Urine Leukocyte Esterase Negative (NEGATIVE) Urine Opiates Screen Negative (NEGATIVE) Urine Barbiturates Screen Negative (NEGATIVE) Phencyclidine (PCP) Screen Negative (NEGATIVE) Urine Amphetamines Screen Negative (NEGATIVE) Urine Benzodiazepines Screen Negative (NEGATIVE) Urine Cocaine Screen Negative (NEGATIVE) Urine Marijuana (THC) Screen Negative (NEGATIVE) Objective HEAD AND NECK: Positive JVD. LUNGS: Coarse rhonchi. CARDIOVASCULAR: Shows regular S1 and S2 with no gallop or murmur. Sternotomy scar is intact. New implant on Right side present. Incision on Left without ICD healing ABDOMEN: Soft. EXTREMITIES: No pitting edema. Kenan Fam MD Aug 06, 2018 15:48
[2018-08-06 16:05] VITALS: BP 116/73
[2018-08-06] MEDS: Docusate 100mg cap ORAL SCH (17:20)
[2018-08-06 20:00] VITALS: BP 100/61
[2018-08-06] MEDS ORDERED: Atorvastatin 20mg tab ORAL SCH (21:00)
[2018-08-06] MEDS: Heparin 5000 units/ml inj SUBQ SCH (21:21)
[2018-08-07] VITALS: BP 108/65
[2018-08-07 04:00] VITALS: BP 114/68
[2018-08-07] MEDS: Heparin 5000 units/ml inj SUBQ SCH ×2 (06:11→14:00)
[2018-08-07 07:02] LABS: BASOPHILS % (AUTO) 0.8 % (0.0-2.0); EOSINOPHILS % (AUTO) 2.3 % (0.0-3.0); HEMATOCRIT 39.8 % (42.0-52.0); HEMOGLOBIN 13.9 G/DL (14.2-18.0); LYMPHOCYTES % (AUTO) 19.1 % (20.0-45.0); MEAN CORPUSCULAR VOLUME 94 FL (80-99); NEUTROPHILS % (AUTO) 67.8 % (45.0-75.0); PLATELET COUNT 147 K/UL (150-450); RED BLOOD COUNT 4.24 M/UL (4.70-6.10); RED CELL DISTRIBUTION WIDTH 12.1 % (11.6-14.8)
[2018-08-07 07:21] LABS: ANION GAP 5 mmol/L (5-15); BLOOD UREA NITROGEN 38 mg/dL (7-18); CALCIUM 8.4 MG/DL (8.5-10.1); CARBON DIOXIDE 25 MMOL/L (21-32); CHLORIDE 105 MMOL/L (98-107); CREATININE 1.3 MG/DL (0.55-1.30); POTASSIUM 4.2 MMOL/L (3.5-5.1); SODIUM 135 MMOL/L (136-145)
[2018-08-07 08:00] VITALS: BP 124/72
[2018-08-07] MEDS: Docusate 100mg cap ORAL SCH (08:52)
[2018-08-07] MEDS ORDERED: Aspirin EC 81mg tab ORAL SCH (09:00)
[2018-08-07 12:00] VITALS: BP 113/71
--- NOTE | 2018-08-07 13:05 | Discharge Summary ---
Discharge Summary Hospital Course Date of Admission Aug 06, 2018 at 13:54 Date of Discharge 08/07/18 Admitting Diagnosis Hypotension HPI Delonte Reyes is a 67 year old male who was admitted on Aug 06, 2018 at 13 :54 for Hypotension Consultations Cardiology Hospital Course Patient presented with general weakness and dizziness, found to have hypotension and ALMAS superimposed on CKD III. He was treated with IV saline and holding of diuretics and ACEI. He was seen by Cardiology who recommended continue hydralazine and isosorbide dinitrate and hold of ACEI. Hypotension and ALMAS have resolved and he is ambulating without difficulty. Will be discharged home in good condition. Discharge Medications Continued Medications: Aspirin* (Aspir 81*) 81 Mg Tablet.dr 81 MG ORAL DAILY, #30 TAB 0 Refills Atorvastatin Calcium* (Lipitor*) 20 Mg Tablet 40 MG ORAL BEDTIME for 30 Days, #30 TAB 0 Refills Carvedilol (Coreg) 3.125 Mg Tablet 3.125 MG ORAL EVERY 12 HOURS for 30 Days, #60 TAB 0 Refills Docusate Sodium (Dok) 100 Mg Capsule 200 MG ORAL TWICE A DAY for 30 Days, #120 CAP 0 Refills use this for constipation Furosemide* (Lasix*) 20 Mg Tablet 20 MG ORAL DAILY for 30 Days, #20 TAB 0 Refills Hydralazine HCl (Hydralazine HCl) 10 Mg Tablet 10 MG ORAL Q12HR for 30 Days, #60 TAB 0 Refills Isosorbide Dinitrate* (Isordil*) 10 Mg Tablet 10 MG ORAL Q12HR for 30 Days, #60 TAB 0 Refills Spironolactone (Aldactone) 25 Mg Tablet 25 MG ORAL DAILY for 30 Days, #30 TAB 0 Refills Discontinued Medications: Hydrocodone/Acetaminophen 5-325* (Hydrocodone/Acetaminophen 5-325*) 1 Each Tablet 1 TAB ORAL Q4H PRN for For Pain, #30 TAB 0 Refills Lisinopril* (Lisinopril*) 10 Mg Tablet 10 MG ORAL DAILY, #30 TAB 0 Refills Ondansetron (Zofran) 4 Mg Tablet 4 MG ORAL Q6H PRN for Nausea & Vomiting, TAB Unable to Obtain Medications (Unable To Obtain Meds) 1 Ea Ea Discharge Condition Upon Discharge: stable Discharge Disposition Patient was discharged to home Discharge Diagnoses: (1) ALMAS (acute kidney injury) (2) Acute on chronic renal failure (3) Hypotension (arterial) Perry Hanson MD Aug 07, 2018 13:05
--- NOTE | 2018-08-09 18:25 | Cardiology Report ---
APPROVED REPORT EKG Measurement Heart [id number] Normal sinus rhythm Possible Left atrial enlargement Left axis deviation Right bundle branch block Septal infarct, age undetermined Abnormal ECG
== END 2018-08-07 14:54 | disposition home or self-care (01) ==
LOC: EDBD 11:10 → EMR 11:39 → EDBEDREQ 13:31 → 2E 13:54 → EDBEDREQ 14:07
DX: I95.9 Hypotension, unspecified (principal); I13.0 Hypertensive heart and chronic kidney disease with heart failure and stage 1 through stage 4 chronic kidney disease, or unspecified chronic kidney disease; N17.9 Acute kidney failure, unspecified; N18.3 Chronic kidney disease, stage 3 (moderate); I50.22 Chronic systolic (congestive) heart failure; I42.9 Cardiomyopathy, unspecified; J45.909 Unspecified asthma, uncomplicated; I25.2 Old myocardial infarction; Z95.810 Presence of automatic (implantable) cardiac defibrillator; Z95.1 Presence of aortocoronary bypass graft; Z79.82 Long term (current) use of aspirin
CPT/HCPCS: 36415; 71045; 80048; 80053; 80307; 81003; 82550; 83605; 83735; 83880; 84439; 84443; 84481; 84484; 85025; 85610; 85730; 86850; 86900; 86901; 87040; 93005; 96360; 96361; 99285; G0378; J1644